=== PATIENT | male | born 1985 | race Caucasian/White ===

== ENCOUNTER → 2019-07-04 09:31 | Outpatient (BNVA) | payer OTHER, SELFPAY | PROVIDERS: Family Provider Nurse Practitioner Family; PCP Nurse Practitioner Family; Visit Provider Psychiatry & Neurology Psychiatry | DX: F60.3 Borderline personality disorder (principal); F34.1 Dysthymic disorder; F40.10 Social phobia, unspecified; F33.42 Major depressive disorder, recurrent, in full remission | CPT/HCPCS: 99213 ==

== ENCOUNTER → 2019-10-31 07:36 | Outpatient (BNVA) | payer OTHER, SELFPAY | PROVIDERS: Family Provider Nurse Practitioner Family; PCP Nurse Practitioner Family; Visit Provider Psychiatry & Neurology Psychiatry | DX: F33.42 Major depressive disorder, recurrent, in full remission (principal); F40.10 Social phobia, unspecified; F34.1 Dysthymic disorder; F60.3 Borderline personality disorder | CPT/HCPCS: 99214 ==

== ENCOUNTER → 2020-03-02 07:38 | Outpatient (BNVA) | payer OTHER, SELFPAY | PROVIDERS: Family Provider Nurse Practitioner Family; PCP Nurse Practitioner Family; Visit Provider Psychiatry & Neurology Psychiatry | DX: F33.42 Major depressive disorder, recurrent, in full remission (principal); F40.10 Social phobia, unspecified; F34.1 Dysthymic disorder; F60.3 Borderline personality disorder; F41.1 Generalized anxiety disorder | CPT/HCPCS: 99213 ==

== ENCOUNTER → 2020-04-27 07:40 | Outpatient (BNVA) | payer OTHER, SELFPAY | PROVIDERS: Family Provider Nurse Practitioner Family; PCP Nurse Practitioner Family; Visit Provider Psychiatry & Neurology Psychiatry | DX: F33.42 Major depressive disorder, recurrent, in full remission (principal); F40.10 Social phobia, unspecified; F34.1 Dysthymic disorder; F60.3 Borderline personality disorder | CPT/HCPCS: 99213 ==

== ENCOUNTER → 2020-06-15 07:41 | Outpatient (BNVA) | payer OTHER, SELFPAY | PROVIDERS: Family Provider Nurse Practitioner Family; PCP Nurse Practitioner Family; Visit Provider Psychiatry & Neurology Psychiatry | DX: F33.42 Major depressive disorder, recurrent, in full remission (principal); F40.10 Social phobia, unspecified; F34.1 Dysthymic disorder; F60.3 Borderline personality disorder | CPT/HCPCS: 99212 ==

== ENCOUNTER → 2020-08-10 07:29 | Outpatient (BNVA) | payer OTHER, SELFPAY | PROVIDERS: Family Provider Nurse Practitioner Family; PCP Nurse Practitioner Family; Visit Provider Psychiatry & Neurology Psychiatry | DX: F33.42 Major depressive disorder, recurrent, in full remission (principal); F40.10 Social phobia, unspecified; F34.1 Dysthymic disorder; F60.3 Borderline personality disorder | CPT/HCPCS: 99213 ==

== ENCOUNTER → 2020-11-02 07:22 | Outpatient (BNVA) | payer OTHER, SELFPAY | PROVIDERS: Family Provider Nurse Practitioner Family; PCP Nurse Practitioner Family; Visit Provider Psychiatry & Neurology Psychiatry | DX: F33.42 Major depressive disorder, recurrent, in full remission (principal); F40.10 Social phobia, unspecified; F34.1 Dysthymic disorder; F60.3 Borderline personality disorder | CPT/HCPCS: 99214 ==

== ENCOUNTER → 2021-06-01 11:55 | Outpatient (BNVA) | payer OTHER, SELFPAY | PROVIDERS: Family Provider Nurse Practitioner Family; PCP Nurse Practitioner Family; Visit Provider Nurse Practitioner Family | DX: Z20.822 Contact with and (suspected) exposure to COVID-19 (principal); R68.89 Other general symptoms and signs | CPT/HCPCS: 87400; 87635 ==

== ENCOUNTER 2021-06-03 21:23 | Inpatient (IN) | payer OTHER, MEDICARE, SELFPAY ==
--- NOTE | 2021-06-03 21:57 | ED_ITS ---
HPI - COVID General: Chief Complaint: COVID symptoms Stated Complaint: Covid Symptoms Time Seen by Provider: 06/03/21 21:57 History of Present Illness: HPI Narrative: Mr Bower is a 36-year-old gentleman with only history of psychiatric disorder who presents to the emergency department due to shortness of breath and cough. He endorses symptom onset approximately 10 days ago initially with fever and generalized symptoms. He presented to outside clinic 1 week ago and was diagnosed with ear infection and started on amoxicillin. This caused diarrhea which is since resolved, he does endorse a history of C. difficile however feels improved, due to the freq uent bowel movements he did note mild amount of blood in the stool. However, his primary concern today is shortness of breath cough. Over the past 2 to 3 days this has gotten markedly worse. Shortness of breath is moderate to severe, course has been worsening. Additional generalized symptoms include chills, fevers, aches. He does have sick contacts and was previously tested for Covid but does not have the results. Denies lung history or heart history. No other newbchanges in health, exacerbating, or relieving factors identified. COVID Results: SARS-CoV-2 Antigen (Rapid) Negative (Negative) 06/03/21 23:00 06/03/21 SARS-CoV-2 RNA (RT-PCR) Detected (NOT DETECTED) A 06/04/21 01:30 06/04/21 Review of Systems General: Reports: 10 or more systems reviewed and unremarkable except in HPI and below PFSH ED PFSH: Medical History Borderline personality disorder Chronic knee pain Congenital heart problem Dysthymic disorder Major depressive disorder, recurrent, in full remission Psychiatric care Social phobia, unspecified Surgical History H/O rhinoplasty Social History Smoking and tobacco status: never smoked Second hand smoke exposure: No Smoking risk assessment/counseling performed?: No Reason smoking risk assessment not done: not indicated Physical Exam Narrative: EXAM NARRATIVE: GENERAL/CONSTITUTIONAL -ill-appearing. Moderate respiratory distress. Eyes - PERRL, no conjunctival injection ENMT - Atraumatic external nose and ears. Dry mucous membranes NECK - supple. trachea midline CARDIOVASCULAR -tachycardic rate and regular rhythm. Normal peripheral perfusion. No peripheral edema. RESPIRATORY - coarse to auscultation bilaterally. Patient is requiring 15 L via nonrebreather to maintain low 90s oxygen saturation. Tachypnea and increased respiratory effort present. ABDOMEN/GI - Nontender/Nondistended. No tenderness to percussion or evidence of peritonitis MSK - Extremities without obvious deformity or tenderness to palpation SKIN - Warm, Dry NEURO - alert and appropriately oriented. Moves all extremities equally. Course ED course: - Patient was seen and evaluated by me at bedside - Patient placed on cardiac monitors, IV access obtained - Initial evaluation notable for respiratory distress as noted above. Patient placed on BiPAP - Labs notable for no leukocytosis, normal hemoglobin. Metabolic panel with evidence of likely dehydration with sodium 131 and chloride 91. Mild hypokalemia, replenishment ordered. AST is elevated. Procalcitonin negative with elevated CRP. Initial ABG with. O2 on BiPAP after being on 15 L of oxygen for some period of time was 65. - Imaging notable for moderate to severe mid and lower abnormalities. My clinical suspicion is Covid however rapid test is negative and the degree of hypoxemia despite FiO2 on BiPAP is concerning especially in the context of known correlation with increased thromboembolic events. Therefore CTA is warranted. CTA is negative for PE though better defines infiltrates. These are consistent with Covid, patient's sick contacts that are sick with Covid, I believe that the patient's antigen test being negative is an error. PCR send out sent. - Additional finding of large thyroid mass was discussed with patient. - Upon serial reexamination after treatment the patient was mildly improved. With patient's permission his was updated. - Based on patient history, evaluation, labs, and imaging as interpreted the most likely cause of the patient's condition is COVID-19 pneumonia with acute hypoxic respiratory failure. - The results of ED evaluation were discussed with the patient including plan for admission due to requirement for level of care not available if discharged to prevent significant worsening/deterioration. - Hospitalist service contacted and patient to be admitted to ICU. In discussion Decadron and remdesivir ordered. - Patient was admitted without acute further deterioration or significant events. I am concerned regarding this patient's prognosis, I did discuss the severity of his disease with both patient and his . Vital Signs: Vital signs: Vital Signs Temperature 98.1 F 06/07/21 00:00 Pulse Rate 97 06/06/21 22:00 Respiratory Rate 22 H 06/06/21 19:57 Blood Pressure 118/74 06/06/21 16:00 Pulse Oximetry 91 06/06/21 19:57 MDM - COVID Medical Records: Attestation: I reviewed the patient's medical records. Lab Data: Attestation: I reviewed the patient's lab results. Labs: Lab Results 06/03/21 06/03/21 06/03/21 22:15 22:15 22:15 WBC 7.9 10^3/uL 10^3/ uL (4.0-10.0) RBC 4.42 10^6/uL 10^6 /uL (4.1-5.3) Hgb 13.4 g/dL g/dL (11.7-16.6) Hct 37.8 % L % (42.0-52.0) MCV 85.5 fl fl (80-94) MCH 30.3 pg pg (28.0-34.0) MCHC 35.4 g/dL g/dL (30.0-36.0) RDW 12.4 % % (12.1-15.1) Plt Count 177 10^3/cmm 10^3 /cmm (130-400) MPV 10.8 fL H fL (7.4-10.4) Neut % (Auto) 90.5 % % Lymph % (Auto) 6.2 % % Faulk % (Auto) 2.7 % % Eos % (Auto) 0.0 % % Baso % (Auto) 0.0 % % Neut # (Auto) 7.11 10^3/uL 10^3 /uL (1.8-7.7) Lymph # (Auto) 0.5 10^3/uL L 10^ 3/uL (0.8-4.8) Faulk # (Auto) 0.2 10^3/uL 10^3/ uL (0.2-0.9) Eos # (Auto) 0.0 10^3/uL 10^3/ uL (0.0-0.8) Baso # (Auto) 0.0 10^3/uL 10^3/ uL (0.0-0.1) Nucleated RBC % (a uto) 0 % % Nucleated RBCs # 0.0 /100WBC /100W BC PT 13.40 SECONDS SEC ONDS (12.1-14.9) INR 0.99 (0.8-1.2) APTT 32.6 SECONDS SECO NDS (23.9-36.7) Specimen Type Sample Site ABG pH ABG pCO2 ABG pO2 ABG HCO3 ABG Base Excess Alejo Test Hematocrit O2 Delivery Device FiO2 Customer Experience Leader ID Sodium 131 mmol/L L mmol /L (136-145) Potassium 3.2 mmol/L L mmol /L (3.5-5.1) Chloride 91 mmol/L L mmol/ L (98-107) Carbon Dioxide 28 mmol/L mmol/L (22-29) Anion Gap 15.2 (5-19) BUN 14 mg/dL mg/dL (6-20) Creatinine 1.0 mg/dL mg/dL (0.7-1.2) GFR Calculation 83.6 mL/min L mL/ min (90-130) Glucose 119 mg/dL H mg/dL (65-115) Calculated Osmolal ity 274 mOsm/kg L mOs m/kg (285-295) Lactate Calcium 7.7 mg/dL L mg/dL (8.5-10.5) Magnesium 1.7 mg/dL mg/dL (1.7-2.3) Total Bilirubin 0.3 mg/dL mg/dL (0.15-1.2) AST 73 U/L H U/L (0-40) ALT 41 U/L U/L (0-41) Alkaline Phosphata se 41 IU/L IU/L (40-130) Troponin T Baselin e Troponin T 120 Min [place] Delta Troponin T C-Reactive Protein 67.4 mg/L H mg/L (0.0-4.9) NT-Pro-B Natriuret Pep 293 pg/mL H pg/mL (0-125) Total Protein 5.6 g/dL L g/dL (6.6-8.7) Albumin 3.4 g/dL L g/dL (3.5-5.2) Globulin 2.2 g/dL g/dL (1.3-4.6) Procalcitonin 0.15 ng/mL ng/mL (0-0.5) TSH 0.38 uIU/mL uIU/m L (0.27-4.20) SARS-CoV-2 RNA (RT -PCR) SARS-CoV-2 Ag (Rap id) 06/03/21 06/03/21 06/03/21 22:15 22:15 22:29 WBC RBC Hgb Hct MCV MCH MCHC RDW Plt Count MPV Neut % (Auto) Lymph % (Auto) Faulk % (Auto) Eos % (Auto) Baso % (Auto) Neut # (Auto) Lymph # (Auto) Faulk # (Auto) Eos # (Auto) Baso # (Auto) Nucleated RBC % (a uto) Nucleated RBCs # PT INR APTT Specimen Type Arterial Sample Site Radial, right ABG pH 7.52 H (7.35-7.45) ABG pCO2 37.8 mmHg mmHg (35-45) ABG pO2 65.0 mmHg L mmHg (80.0-100.0) ABG HCO3 31.0 mmol/L H mmo l/L (22-26) ABG Base Excess 7.7 mmol/L H mmol /L (-2.0-2.0) Alejo Test Pos Hematocrit 43.9 % % (42-52) O2 Delivery Device Bipap FiO2 80.0 % % Customer Experience Leader ID glc Sodium Potassium Chloride Carbon Dioxide Anion Gap BUN Creatinine GFR Calculation Glucose Calculated Osmolal ity Lactate 1.2 mmol/L mmol/L (0.5-2.2) Calcium Magnesium Total Bilirubin AST ALT Alkaline Phosphata se Troponin T Baselin e 8 ng/L ng/L (0-15) Troponin T 120 Min [place] Troponin T C-Reactive Protein NT-Pro-B Natriuret Pep Total Protein Albumin Globulin Procalcitonin TSH SARS-CoV-2 RNA (RT -PCR) SARS-CoV-2 Ag (Rap id) 06/03/21 06/04/21 06/04/21 23:00 00:30 01:30 WBC RBC Hgb Hct MCV MCH MCHC RDW Plt Count MPV Neut % (Auto) Lymph % (Auto) Faulk % (Auto) Eos % (Auto) Baso % (Auto) Neut # (Auto) Lymph # (Auto) Faulk # (Auto) Eos # (Auto) Baso # (Auto) Nucleated RBC % (a uto) Nucleated RBCs # PT INR APTT Specimen Type Sample Site ABG pH ABG pCO2 ABG pO2 ABG HCO3 ABG Base Excess Alejo Test Hematocrit O2 Delivery Device FiO2 Customer Experience Leader ID Sodium Potassium Chloride Carbon Dioxide Anion Gap BUN Creatinine GFR Calculation Glucose Calculated Osmolal ity Lactate Calcium Magnesium Total Bilirubin AST ALT Alkaline Phosphata se Troponin T Baselin e Troponin T 120 Min [place] 7.33 ng/L ng/L (0-15) Delta Troponin T -0.67 ABS# L ABS# (0-10) C-Reactive Protein NT-Pro-B Natriuret Pep Total Protein Albumin Globulin Procalcitonin TSH SARS-CoV-2 RNA (RT -PCR) Detected A (NOT DETECTED) SARS-CoV-2 Ag (Rap id) Negative (Negative) EKG Data: EKG 1: Attestation: I personally reviewed and interpreted this EKG as follows: EKG interpretation date: 06/04/21 EKG interpretation time: 00:30 Interpretation: Twelve-lead EKG shows a regular rhythm at a rate of 93. DE interval 152, QRS duration 96, QTc 470. Borderline axis. Interpretation: Sinus rhythm. Nonspecific ST segment abnormalities. COVID Results: SARS-CoV-2 Antigen (Rapid) Negative (Negative) 06/03/21 23:00 06/03/21 SARS-CoV-2 RNA (RT-PCR) Detected (NOT DETECTED) A 06/04/21 01:30 06/04/21 Critical Care Time Critical Care Time: Critical Care Time: Yes Total Critical Care Time: 45 Attestation: Due to a high probability of clinically significant, possibly life threatening deterioration, the patient required my highest level of attention and preparedness to intervene emergently and I personally spent this critical care time directly and personally managing the patient. This critical care time included obtaining a history; examining the patient; pulse oximetry; ordering and review of laboratory and imaging studies; arranging urgent treatment with development of a management plan; evaluation of patient's response to treatment; frequent reassessment; and, discussions with other providers as applicable. It was exclusive of separately billable procedures. Discharge Plan Discharge Patient Disposition: Admitted As Inpatient Admit Provider: Kat Gonzalez Coding Level of Care Code ED Account Installer for [facility] [place]
[2021-06-03 22:02] VITALS: BP 109/63; PULSE 108; RESP 20; TEMP 37.3; O2SAT 70
--- NOTE | 2021-06-03 22:08 | XRR_ITS ---
PROCEDURE INFORMATION: Exam: XR Chest Exam date and time: 06/03/2021 10:08 PM Age: 36 years old Clinical indication: Cough and shortness of breath; Additional info: Resp distress, covid symptoms TECHNIQUE: Imaging protocol: XR of the chest. Views: 1 view. COMPARISON: CT Abdomen/Pelvis Renal [id number] 11/22/2018 7:12 PM FINDINGS: Lungs: Moderate to severe mid and lower lung field opacities most consistent with pneumonia. Pleural spaces: Unremarkable. No pleural effusion. No pneumothorax. Heart/Mediastinum: Unremarkable. No cardiomegaly. Bones/joints: Unremarkable. XR/XR chest 1V portable [id number] IMPRESSION: Moderate to severe mid and lower lung field opacities most consistent with pneumonia. Radiation Dose CTDIVOL = (mGy): DLP = (mGy-cm)
--- NOTE | 2021-06-03 22:09 | ECG_ITS ---
[facility] Test Date: 2021-06-04 Pat Name: Cabrera Bower Department: Room: Gender: Male Threading Machine Feeder Automatic: : 1985 Requested By: Michael Wynn Order Number: [id number] Freitas MD: Tyler Carlisle M.D. Measurements Intervals [place] Rate: 93 P: 21 [place]: 152 QRS: -12 QRSD: 96 T: -4 QT: 376 QTc: 470 Interpretive Statements SINUS RHYTHM MINIMAL VOLTAGE CRITERIA FOR LVH, CONSIDER NORMAL VARIANT [MEETS CRITERIA IN ONE OF: R(aVL), S(V1), R(V5), R(V5/V6)+S(V1)] NONSPECIFIC T-WAVE ABNORMALITY No previous ECG available for comparison Electronically Signed On 06-05-2021 13:18:33 DIE CASTING MACHINE MAINTAINER by Tyler Carlisle M.D. [id number]
[2021-06-03 22:15] VITALS: O2SAT 94
--- NOTE | 2021-06-03 22:25 | PC.NURSE ---
RT at bedside to initiate bi-pap 12/02 80% FiO2,
[2021-06-03 22:35] VITALS: PULSE 102; RESP 16; O2SAT 92
[2021-06-03] MEDS: sodium chloride 0.9% 500 ML IV (22:38)
[2021-06-03 22:40] LABS: ABG PCO2 37.8 mmHg (35-45); ABG PH Result 7.52 (7.35-7.45); Arterial Blood Gas Hematocrit 43.9 % (42-52); Base Excess ABG 7.7 mmol/L (-2.0-2.0); Blood Gas Allen Test Pos; Blood Gas Operator Identificat glc; Blood Gas Sample Site Radial, right; Blood Gas Sample Type Arterial; Oxygen Device BIPAP
[2021-06-03 22:52] LABS: Hematocrit 37.8 % (42.0-52.0); Hemoglobin 13.4 g/dL (11.7-16.6); Lymphocytes # 0.5 10^3/uL (0.8-4.8); Lymphocytes % 6.2 %; Mean Corpuscular HGB Conc 35.4 g/dL (30.0-36.0); Mean Corpuscular Hemoglobin 30.3 pg (28.0-34.0); Mean Corpuscular Volume 85.5 fl (80-94); Mean Platelet Volume 10.8 fL (7.4-10.4); Monocytes # 0.2 10^3/uL (0.2-0.9); Monocytes % 2.7 %; Neutrophils # 7.11 10^3/uL (1.8-7.7); Neutrophils % 90.5 %; Nucleated Red Blood Cells % 0 %; Platelet Count 177 10^3/cmm (130-400); Red Blood Count 4.42 10^6/uL (4.1-5.3); Red Cell Distribution Width 12.4 % (12.1-15.1); White Blood Count 7.9 10^3/uL (4.0-10.0)
[2021-06-03 22:55] VITALS: RESP 22; O2SAT 93
[2021-06-03] MEDS: morphine 4 mg/mL SDV 1 mL IVP (22:55)
[2021-06-03] MEDS: acetaminophen 1,000 MG/100 ML PIGGYBACK 400 MG IV (22:55)
--- NOTE | 2021-06-03 22:57 | CTR_ITS ---
PROCEDURE INFORMATION: Exam: CTA Chest With Contrast Exam date and time: 06/03/2021 10:57 PM Age: 36 years old Clinical indication: Dyspnea and shortness of breath; Patient HX: SOB and dyspnea. 70 percent spo2 on room air when presenting to er. Pending covid results. ; Additional info: Covid, hypoxemia, respiratory distress TECHNIQUE: Imaging protocol: Computed tomographic angiography of the chest with contrast. 3D rendering (Not supervised by radiologist): MIP and/or 3D reconstructed images were created by the technologist. Radiation optimization: All CT scans at this facility use at least one of these dose optimization techniques: automated exposure control; mA and/or kV adjustment per patient size (includes targeted exams where dose is matched to clinical indication); or iterative reconstruction. Contrast material: OMNI 350; Contrast volume: 103 ml; Contrast route: INTRAVENOUS (IV); COMPARISON: CR (CHEST, ) 06/03/2021 10:33 PM RADIATION DOSE METRICS: Total DLP (mGy-cm): 1758.03 FINDINGS: Pulmonary arteries: No pulmonary embolus or aortic dissection. Aorta: See Pulmonary arteries finding. Thyroid: Large 7.5 x 5.4 x 4.6 cm cm left thyroid nodule/mass with deviation of the trachea to the right with recommendation for nonemergent thyroid ultrasound to rule out neoplasm. Lungs: Prominent bilateral geographic ground-glass opacities with consolidation in airspace disease consistent with moderate to severe bilateral COVID-19 pneumonia versus other pneumonia. Pleural spaces: Unremarkable. No pneumothorax. No pleural effusion. Heart: Unremarkable. No cardiomegaly. No pericardial effusion. Lymph nodes: Unremarkable. No enlarged lymph nodes. Bones/joints: Unremarkable. No acute fracture. Soft tissues: Unremarkable. CT/CT angio chest PE protcl [id number] IMPRESSION: 1. Prominent bilateral geographic ground-glass opacities with consolidation in airspace disease consistent with moderate to severe bilateral COVID-19 pneumonia versus other pneumonia. 2. No pulmonary embolus or aortic dissection. 3. Large 7.5 x 5.4 x 4.6 cm cm left thyroid nodule/mass with deviation of the trachea to the right with recommendation for nonemergent thyroid ultrasound to rule out neoplasm. COMMENTS: Consistent with the [place] [employer]'s Incidental Findings Committee white paper (J Am Edelmira Radiol 2015): In patients aged 35 years and older with an incidental thyroid nodule equal to or greater than 1.[address], MRI or extrathyroidal US, further evaluation with dedicated thyroid US is recommended for patients with normal life expectancy and without comorbidities. For smaller nodules without suspicious features, no further evaluation or follow up is recommended. Radiation Dose CTDIVOL = (mGy): DLP = 1758.03 (mGy-cm)
[2021-06-03 23:01] LABS: INR 0.99 (0.8-1.2); Partial Thromboplastin Time 32.6 SECONDS (23.9-36.7)
[2021-06-03 23:12] LABS: Lactate (Lactic Acid level) 1.2 mmol/L (0.5-2.2)
[2021-06-03 23:16] LABS: Troponin(5th) Baseline 8 ng/L (0-15)
[2021-06-03 23:23] LABS: NT Pro B Type Natriuretic Pept 293 pg/mL (0-125); Procalcitonin 0.15 ng/mL (0-0.5); Thyroid Stimulating Hormone 0.38 uIU/mL (0.27-4.20)
[2021-06-03 23:34] LABS: Alanine Aminotransferase 41 U/L (0-41); Albumin Level 3.4 g/dL (3.5-5.2); Alkaline Phosphatase 41 IU/L (40-130); Anion Gap 15.2 (5-19); Aspartate Amino Transferase 73 U/L (0-40); Blood Urea Nitrogen 14 mg/dL (6-20); C Reactive Protein 67.4 mg/L (0.0-4.9); Calcium 7.7 mg/dL (8.5-10.5); Carbon Dioxide 28 mmol/L (22-29); Chloride 91 mmol/L (98-107); Globulin 2.2 g/dL (1.3-4.6); Glomerular Filtration Rate 83.6 mL/min (90-130); Glucose 119 mg/dL (65-115); Magnesium 1.7 mg/dL (1.7-2.3); Osmolality Calculated 274 mOsm/kg (285-295); Potassium 3.2 mmol/L (3.5-5.1); Sodium 131 mmol/L (136-145); Total Bilirubin 0.3 mg/dL (0.15-1.2); Total Protein 5.6 g/dL (6.6-8.7)
[2021-06-03] MEDS: iohexol 350 mg/mL 100 mL Btl IV ×2 (23:45→23:46)
[2021-06-04] VITALS (37 sets, daily range): BP systolic 99–145; BP diastolic 53–87; PULSE 80–104; RESP 15–33; TEMP 36.8–38.4; O2SAT 88–97; BMI 43.4
--- NOTE | 2021-06-04 00:09 | ECG_ITS ---
[facility] Test Date: 2021-06-04 Pat Name: Cabrera Bower Department: Room: Gender: Male Manager Leadership Development: : 1985 Requested By: Michael Wynn Order Number: [id number] Zena MD: Tyler Carlisle M.D. Measurements Intervals [place] Rate: 88 P: 28 [place]: 163 QRS: -11 QRSD: 104 T: -5 QT: 381 QTc: 461 Interpretive Statements SINUS RHYTHM Compared to ECG 06/04/2021 00:26:09 T-wave abnormality no longer present Electronically Signed On 06-06-2021 17:30:42 GLOBAL TRANSPORTATION MANAGER by Tyler Carlisle M.D. [id number]
[2021-06-04 01:03] LABS: Troponin 5 2HR 7.33 ng/L (0-15)
[2021-06-04 01:05] LABS: SARS Covid-2 Antigen Negative (Negative)
[2021-06-04 01:06] LABS: Troponin 5 2HR Delta -0.67 ABS# (0-10)
[2021-06-04] MEDS: dexamethasone 10 mg/mL INJ 6 MG IVP (01:07)
[2021-06-04] MEDS: HYDROmorphone 1 mg/mL INJ 1 mL IVP (01:38)
--- NOTE | 2021-06-04 02:22 | P.HP_ITS ---
Providers/Chief Complaint Admitting Physician: Kat Gonzalez MD Primary Care Provider: KIERAN Yang Chief Complaint: Covid Symptoms History of Present Illness Cabrera Bower is a 36 year old male who started off with having symptoms of ear pain, discharge, URI first on 05/24, started on treatment with oral and otic abc without significant difference, then by 06/01 also developing high fever, chills, diarrhea for which he visited PMD on 06/01 and has negative influenza AG and has a pending COVID PCR. Came into the ER today with c/o fever and dyspnea. Sick contacts+ at home with similar symptoms. CTA PE nagteive for PE. Extensive B/L infiltrates seen on CXR and CT concerning for covid 19 pneumonia. He is unvaccinated. On ER arrival, 02 sat was 70% on RA, then required placement on nasal canula and eventually switched to BIPAP due to respiratory distress. Review of Systems General: Reports: 10 or more systems reviewed and unremarkable except in HPI and below Const: Denies: fever(s), chills or body aches Eyes: Denies: change in vision, blurry vision or photophobia ENMT: Reports: hoarseness; Denies: throat pain, enlarged tonsils, odynophagia or nasal congestion Card: Denies: chest pain, palpitations, irregular heart rhythm, edema, swelling of feet/ankles, lightheadedness, pre-syncope, dyspnea on exertion or orthopnea Resp: Denies: dyspnea, productive cough, non-productive cough, wheezing, stridor, pain on inspiration, change in phlegm color, hemoptysis or chest congestion GI: Denies: abdominal pain, nausea, vomiting, hematemesis, coffee ground emesis, dysphagia, heartburn, diarrhea, constipation, GI cramping, change in stool character, hematochezia or melena : Denies: flank pain, dysuria, urinary frequency, urinary urgency, urinary hesitancy or hematuria Musc: Denies: neck pain, back pain, extremity pain, joint swelling, joint warmth or deformity Neuro: Denies: headache(s), numbness in extremities, weakness in extremities, sensory changes, difficulty walking, frequent falls, dizziness, vertigo, behavioral changes, Slurred speech present or seizure-like activity Psych: Denies: anxiety, depression, suicidal ideation or homicidal ideation Endo: Denies: polyuria, polydipsia, tired all the time, cold intolerance or hot flashes Anuj/Lymph: Denies: easy bruising or easy bleeding Medications/Allergies Home Medications Medication Instructions Recorded Confirmed Last Taken Type fluticasone propionate 50 1 spray INTRANASAL Q12H #15.8 ml 08/30/20 06/01/21 Unknown Rx mcg/actuation nasal spray,suspension alprazolam 1 mg tablet 1 mg PO DAILY PRN #30 tab 04/18/21 06/01/21 Unknown Rx sertraline 100 mg tablet 100 mg PO DAILY #30 tab 05/06/21 06/01/21 Unknown Rx acetaminophen 325 mg capsule 325 mg PO QID PRN 05/24/21 06/01/21 Unknown History amoxicillin 500 mg tablet 500 mg PO BID 10 Days #20 tab 05/24/21 06/01/21 Unknown Rx ciprofloxacin 0.3 %-dexamethasone 4 drp OTIC (EAR) BID 7 Days #7.5 ml 05/24/21 06/01/21 Unknown Rx 0.1 % ear drops,suspension fexofenadine 60 mg-pseudoephedrine 1 tab PO Q12H PRN 14 Days #30 tab 05/24/21 06/01/21 Unknown Rx ER 120 mg tablet,ext.release,12 hr prednisone 20 mg tablet 60 mg PO DAILY 9 Days #18 tab 06/01/21 06/01/21 Unknown Rx Allergies Allergy/AdvReac Type Severity Reaction Status Date / Time No Known Allergies Allergy Verified 06/01/21 11:17 PFSH Acute PFSH: Medical History Borderline personality disorder Chronic knee pain Congenital heart problem Dysthymic disorder Major depressive disorder, recurrent, in full remission Psychiatric care Social phobia, unspecified Surgical History H/O rhinoplasty Social History Smoking and tobacco status: never smoked Second hand smoke exposure: No Smoking risk assessment/counseling performed?: No Reason smoking risk assessment not done: not indicated Vitals/I&O/Wt Last Vital Signs Temp 99.2 F 06/03/21 22:02 Pulse 82 06/04/21 01:27 Resp 18 06/04/21 01:38 BP 113/73 06/04/21 01:10 Pulse Ox 93 06/04/21 01:27 06/03/21 06/03/21 06/04/21 14:59 22:59 06:59 Intake Total 600 / 600 Balance 600 / 600 Weight last 48 hrs Weight 142.428 kg Physical Exam Narrative: EXAM NARRATIVE: General: visibly dyspneic, unable to talk in full sentences, obese HEENT: PERRLA, pupils bilaterally equal and reactive, pallors not present Chest: Normal vesicular breath sounds, no added sounds, equal good air entry bilaterally CVS: S1-S2 regular, no murmurs, no tachycardia, no gallops, no rubs Abdomen: Soft, nontender, no organomegaly, bowel sounds present Neuro: No focal deficits, no facial deformity, AO x3, power 5/5 in all limbs Data : 06/03/21 22:15 06/04/21 04:15 Other Labs: Laboratory Results WBC 7.9 10^3/uL (4.0-10.0) 06/03/21 22:15 RBC 4.42 10^6/uL (4.1-5.3) 06/03/21 22:15 Hgb 13.4 g/dL (11.7-16.6) 06/03/21 22:15 Hct 37.8 % (42.0-52.0) L 06/03/21 22:15 MCV 85.5 fl (80-94) 06/03/21 22:15 MCH 30.3 pg (28.0-34.0) 06/03/21 22:15 MCHC 35.4 g/dL (30.0-36.0) 06/03/21 22:15 RDW 12.4 % (12.1-15.1) 06/03/21 22:15 Plt Count 177 10^3/cmm (130-400) 06/03/21 22:15 MPV 10.8 fL (7.4-10.4) H 06/03/21 22:15 Neut % (Auto) 90.5 % 06/03/21 22:15 Lymph % (Auto) 6.2 % 06/03/21 22:15 [place] % (Auto) 2.7 % 06/03/21 22:15 Eos % (Auto) 0.0 % 06/03/21 22:15 Baso % (Auto) 0.0 % 06/03/21 22:15 Neut # (Auto) 7.11 10^3/uL (1.8-7.7) 06/03/21 22:15 Lymph # (Auto) 0.5 10^3/uL (0.8-4.8) L 06/03/21 22:15 [place] # (Auto) 0.2 10^3/uL (0.2-0.9) 06/03/21 22:15 Eos # (Auto) 0.0 10^3/uL (0.0-0.8) 06/03/21 22:15 Baso # (Auto) 0.0 10^3/uL (0.0-0.1) 06/03/21 22:15 Nucleated RBC % (auto) 0 % 06/03/21 22:15 Nucleated RBCs # 0.0 /100WBC 06/03/21 22:15 PT 13.40 SECONDS (12.1-14.9) 06/03/21 22:15 INR 0.99 (0.8-1.2) 06/03/21 22:15 APTT 32.6 SECONDS (23.9-36.7) 06/03/21 22:15 D-Dimer 0.52 ug/mIFEU (0-0.59) 06/04/21 04:15 Specimen Type Arterial 06/03/21 22:29 Sample Site Radial, right 06/03/21 22:29 ABG pH 7.52 (7.35-7.45) H 06/03/21 22:29 ABG pCO2 37.8 mmHg (35-45) 06/03/21 22:29 ABG pO2 65.0 mmHg (80.0-100.0) L 06/03/21 22:29 ABG HCO3 31.0 mmol/L (22-26) H 06/03/21 22:29 ABG Base Excess 7.7 mmol/L (-2.0-2.0) H 06/03/21 22:29 Alejo Test Pos 06/03/21 22:29 Hematocrit 43.9 % (42-52) 06/03/21 22:29 O2 Delivery Device Bipap 06/03/21 22:29 FiO2 80.0 % 06/03/21 22:29 Forming Machine Upkeep Mechanic Helper ID glc 06/03/21 22:29 Sodium 133 mmol/L (136-145) L 06/04/21 04:15 Potassium 3.4 mmol/L (3.5-5.1) L 06/04/21 04:15 Chloride 95 mmol/L (98-107) L 06/04/21 04:15 Carbon Dioxide 25 mmol/L (22-29) 06/04/21 04:15 Anion Gap 16.4 (5-19) 06/04/21 04:15 BUN 15 mg/dL (6-20) 06/04/21 04:15 Creatinine 1.0 mg/dL (0.7-1.2) 06/04/21 04:15 GFR Calculation 83.6 mL/min (90-130) L 06/04/21 04:15 Glucose 131 mg/dL (65-115) H 06/04/21 04:15 Calculated Osmolality 279 mOsm/kg (285-295) L 06/04/21 04:15 Lactate 1.2 mmol/L (0.5-2.2) 06/03/21 22:15 Calcium 7.7 mg/dL (8.5-10.5) L 06/04/21 04:15 Magnesium 1.7 mg/dL (1.7-2.3) 06/03/21 22:15 Total Bilirubin 0.2 mg/dL (0.15-1.2) 06/04/21 04:15 AST 58 U/L (0-40) H 06/04/21 04:15 ALT 34 U/L (0-41) 06/04/21 04:15 Alkaline Phosphatase 36 IU/L (40-130) L 06/04/21 04:15 Troponin T Baseline 8 ng/L (0-15) 06/03/21 22:15 Troponin T 120 Minute 7.33 ng/L (0-15) 06/04/21 00:30 Delta Troponin T -0.67 ABS# (0-10) L 06/04/21 00:30 Troponin T Hi Sens 6Hr 6.00 ng/L (0-15) 06/04/21 04:15 Troponin T Hi Sens 6Hr Delta -2.00 ng/L (0-12) L 06/04/21 04:15 C-Reactive Protein 64.3 mg/L (0.0-4.9) H 06/04/21 04:15 C-Reactive Protein Cancelled 06/04/21 04:15 NT-Pro-B Natriuret Pep 293 pg/mL (0-125) H 06/03/21 22:15 Total Protein 5.6 g/dL (6.6-8.7) L 06/04/21 04:15 Albumin 3.1 g/dL (3.5-5.2) L 06/04/21 04:15 Globulin 2.5 g/dL (1.3-4.6) 06/04/21 04:15 Procalcitonin 0.15 ng/mL (0-0.5) 06/03/21 22:15 TSH 0.38 uIU/mL (0.27-4.20) 06/03/21 22:15 SARS-CoV-2 Ag (Rapid) Negative (Negative) 06/03/21 23:00 Impressions Chest X-Ray 06/03/21 22:08 IMPRESSION: Moderate to severe mid and lower lung field opacities most consistent with pneumonia. Radiation Dose CTDIVOL = (mGy): DLP = (mGy-cm) Chest CTA 06/03/21 22:57 IMPRESSION: 1. Prominent bilateral geographic ground-glass opacities with consolidation in airspace disease consistent with moderate to severe bilateral COVID-19 pneumonia versus other pneumonia. 2. No pulmonary embolus or aortic dissection. 3. Large 7.5 x 5.4 x 4.6 cm cm left thyroid nodule/mass with deviation of the trachea to the right with recommendation for nonemergent thyroid ultrasound to rule out neoplasm. COMMENTS: Consistent with the [employer]'s Incidental Findings Committee white paper (J Am Edelmira Radiol 2015): In patients aged 35 years and older with an incidental thyroid nodule equal to or greater than 1.[address], MRI or extrathyroidal US, further evaluation with dedicated thyroid US is recommended for patients with normal life expectancy and without comorbidities. For smaller nodules without suspicious features, no further evaluation or follow up is recommended. Radiation Dose CTDIVOL = (mGy): DLP = 1758.03 (mGy-cm) Micro: Microbiology 06/03/21 22:00 Blood Culture - Preliminary Blood SPECIMEN COLLECTED 06/03/21 22:15 Blood Culture - Preliminary Blood SPECIMEN COLLECTED A&P Assessment and plan (1) COVID-19 determined by clinical diagnostic criteria: Status: Acute (2) Acute respiratory failure: Status: Acute Additional A&P Information Admit to ICU in view of acute respiratory failure with quickly increasing [address], history, sick conacts clinical picture most consistent with COVID 19 pneumonia pending COVID PCR, however will start treatment based on strong clinical suspicion Remdisivir 200mg iv x 1 followed by 100mg iv daily dexamethasone 6mg IVP daily duoneb q6h, budesonide q12h empiric CTX and azithromycin Flutter valve/spirometer at bedside trend inflammatory markers including CRP, D dimer CTA PE negative for PE supplemental 02 to luis carlos 02 sat >92%, BIPAP ventilation DVT ppx: lovenox 40mg s/c daily troponins without sgnificant delta Attestations Medical Necessity Statement*: >2midnight admission anticipate for above defined care Coding Level of Care Code Acute Horse 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
[2021-06-04] MEDS: remdesivir 200 MG in sodium chloride 0.9% (100 ml) 60 ML 100 MG IV (02:25)
[2021-06-04] MEDS: ipratropium-albuterol 3 mL Neb INHALATION ×4 (02:45→20:00)
[2021-06-04] MEDS: lidocaine 1% 5 ML in potassium chloride premix 100 ML 25 ML IV (02:53)
[2021-06-04] MEDS: enoxaparin 40 mg/0.4 mL Syringe SUBCUT (02:56)
[2021-06-04] MEDS: cefTRIAXone 1,000 MG in sodium chloride 0.9% (plus) 50 ML 100 MG IV (03:02)
[2021-06-04] MEDS: azithromycin 500 MG in sodium chloride 0.9% 250 ML 250 MG IV (03:44)
--- NOTE | 2021-06-04 04:09 | ECG_ITS ---
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 Measurements Intervals [place] Rate: 91 P: 46 TX: 176 QRS: -2 QRSD: 98 T: -1 QT: 359 QTc: 443 Interpretive Statements SINUS RHYTHM Compared to ECG 06/04/2021 01:32:51 No significant changes Electronically Signed On 06-06-2021 17:30:39 PIN FEATHER MACHINE OPERATOR by Tyler Carlisel M.D. [email or web address] hospital at stone countyGraphic Indiaohio state university wexner medical [id number]
[2021-06-04 05:57] LABS: D Dimer 0.52 ug/mIFEU (0-0.59)
[2021-06-04 06:06] LABS: Alanine Aminotransferase 34 U/L (0-41); Albumin Level 3.1 g/dL (3.5-5.2); Alkaline Phosphatase 36 IU/L (40-130); Anion Gap 16.4 (5-19); Aspartate Amino Transferase 58 U/L (0-40); Blood Urea Nitrogen 15 mg/dL (6-20); C Reactive Protein 64.3 mg/L (0.0-4.9); Calcium 7.7 mg/dL (8.5-10.5); Carbon Dioxide 25 mmol/L (22-29); Chloride 95 mmol/L (98-107); Globulin 2.5 g/dL (1.3-4.6); Glomerular Filtration Rate 83.6 mL/min (90-130); Glucose 131 mg/dL (65-115); Osmolality Calculated 279 mOsm/kg (285-295); Potassium 3.4 mmol/L (3.5-5.1); Sodium 133 mmol/L (136-145); Total Bilirubin 0.2 mg/dL (0.15-1.2); Total Protein 5.6 g/dL (6.6-8.7)
[2021-06-04] MEDS: cefepime 2,000 MG in sodium chloride 0.9% (plus) 50 ML 100 MG IV ×2 (09:11→21:06)
[2021-06-04] MEDS: sertraline 100 mg Tablet PO (09:11)
[2021-06-04] MEDS: pantoprazole DR 40 mg Tablet PO (09:11)
[2021-06-04] MEDS: budesonide 0.5 mg/2 mL Neb INHALATION ×2 (09:27→20:00)
[2021-06-04] MEDS: vancomycin 1,500 MG/300 ML PIGGYBACK 200 MG IV ×2 (09:47→17:41)
--- NOTE | 2021-06-04 16:51 | P.PN_ITS ---
Subjective Subjective: Interval history: Patient was seen this morning, no fevers, chills, nausea, vomiting, he is currently on BiPAP, 80%, agreeable to proceed with elective intubation if required, he is unvaccinated Vitals/I&O/Wt Last Vital Signs Temp 98.4 F 06/04/21 12:00 Pulse 93 06/04/21 16:17 Resp 33 H 06/04/21 16:16 BP 121/74 06/04/21 16:00 Pulse Ox 96 06/04/21 16:17 06/04/21 06/04/21 06/04/21 06:59 14:59 22:59 Intake Total 960 / 960 555 / 555 Output Total 1250 / 1250 500 / 500 Balance -290 / -290 55 / 55 Weight last 48 hrs Weight 137.467 kg Weight 142.428 kg Physical Exam Const: COMMON NORMALS: no acute distress and patient oriented x3 Resp: COMMON NORMALS: normal respiratory effort, No retractions and No use of accessory muscles AUSCULTATION: diminished lung sounds diffuse Cardio: COMMON NORMALS: regular rate, regular rhythm, S1 normal heart sound present and S2 normal heart sound present RATE: regular rate RHYTHM: regular rhythm HEART SOUNDS: S1 normal heart sound present and S2 normal heart sound present GI: COMMON NORMALS: Normal to inspection, nondistended, normoactive bowel sounds present, Soft to palpation, non-tender and No hepatosplenomegaly present PALPATION: Yes Soft to palpation and Yes No hepatosplenomegaly present Extremity: COMMON NORMALS: no pedal edema Neuro: COMMON NORMALS: patient oriented x3 Psych: COMMON NORMALS: mental status grossly normal Data : 06/03/21 22:15 06/04/21 04:15 Micro: Microbiology 06/03/21 22:00 Blood Culture - Preliminary Blood SPECIMEN COLLECTED 06/03/21 22:15 Blood Culture - Preliminary Blood SPECIMEN COLLECTED A&P Assessment and plan (1) COVID-19 determined by clinical diagnostic criteria: Status: Acute (2) Acute respiratory failure: Status: Acute (3) Acute respiratory distress syndrome: Status: Acute Additional A&P Information Admit to ICU in view of acute respiratory failure with quickly increasing [address], history, sick conacts clinical picture most consistent with COVID 19 pneumonia pending COVID PCR, however will start treatment based on strong clinical suspicion Remdisivir 200mg iv x 1 followed by 100mg iv daily dexamethasone 6mg IVP daily duoneb q6h, budesonide q12h Broaden antibiotic coverage to vancomycin, cefepime, azithromycin Flutter valve/spirometer at bedside trend inflammatory markers including CRP, D dimer CTA PE negative for PE supplemental 02 to luis carlos 02 sat >92%, BIPAP ventilation DVT ppx: lovenox 40mg s/c daily troponins without sgnificant delta Attestations Medical Necessity Statement*: Patient requires hospitalization for acute respiratory failure secondary to COVID-19 pneumonia Coding Level of Care Code Acute Supervisor [facility] for [facility] Diagnoses COVID-19 determined by clinical diagnostic criteria U07.1 Acute respiratory failure J96.00 Acute respiratory distress syndrome J80
[2021-06-04] MEDS: remdesivir 100 MG in sodium chloride 0.9% (100 ml) 100 ML IV (19:23)
[2021-06-04] MEDS: ALPRAZolam 0.5 mg Tablet PO (21:19)
[2021-06-05] VITALS (34 sets, daily range): BP systolic 97–140; BP diastolic 58–77; PULSE 68–106; RESP 13–30; TEMP 37–37.4; O2SAT 83–95
[2021-06-05] MEDS: vancomycin 1,500 MG/300 ML PIGGYBACK 200 MG IV ×3 (01:12→16:15)
[2021-06-05] MEDS: enoxaparin 40 mg/0.4 mL Syringe SUBCUT (01:16)
[2021-06-05] MEDS: dexamethasone 4 mg/mL INJ 6 MG IVP (01:16)
[2021-06-05] MEDS: ipratropium-albuterol 3 mL Neb INHALATION ×4 (02:00→20:03)
[2021-06-05 04:27] LABS: Basophils % 0.1 %; Hemoglobin 12.4 g/dL (11.7-16.6); Lymphocytes # 0.8 10^3/uL (0.8-4.8); Lymphocytes % 11.3 %; Mean Corpuscular HGB Conc 32.6 g/dL (30.0-36.0); Mean Corpuscular Hemoglobin 29.7 pg (28.0-34.0); Mean Corpuscular Volume 90.9 fl (80-94); Mean Platelet Volume 10.2 fL (7.4-10.4); Monocytes # 0.5 10^3/uL (0.2-0.9); Monocytes % 6.7 %; Neutrophils # 5.61 10^3/uL (1.8-7.7); Neutrophils % 81.3 %; Nucleated Red Blood Cells % 0 %; Platelet Count 234 10^3/cmm (130-400); Red Blood Count 4.18 10^6/uL (4.1-5.3); Red Cell Distribution Width 12.8 % (12.1-15.1); White Blood Count 6.9 10^3/uL (4.0-10.0)
[2021-06-05 04:53] LABS: NT Pro B Type Natriuretic Pept 471 pg/mL (0-125); Procalcitonin 0.19 ng/mL (0-0.5)
[2021-06-05 05:03] LABS: Slide Review Slide Review Perform
[2021-06-05 05:06] LABS: Alanine Aminotransferase 31 U/L (0-41); Albumin Level 2.9 g/dL (3.5-5.2); Alkaline Phosphatase 36 IU/L (40-130); Anion Gap 12.1 (5-19); Aspartate Amino Transferase 44 U/L (0-40); Blood Urea Nitrogen 14 mg/dL (6-20); C Reactive Protein 43.9 mg/L (0.0-4.9); Carbon Dioxide 32 mmol/L (22-29); Chloride 98 mmol/L (98-107); Creatine Phosphokinase 284 U/L (39-308); Globulin 2.8 g/dL (1.3-4.6); Glomerular Filtration Rate 94.4 mL/min (90-130); Glucose 129 mg/dL (65-115); Magnesium 2.3 mg/dL (1.7-2.3); Osmolality Calculated 288 mOsm/kg (285-295); Phosphorus 2.8 mg/dL (2.5-4.5); Potassium 4.1 mmol/L (3.5-5.1); Sodium 138 mmol/L (136-145); Total Bilirubin 0.3 mg/dL (0.15-1.2); Total Protein 5.7 g/dL (6.6-8.7)
[2021-06-05 05:41] LABS: ABG PCO2 46.5 mmHg (35-45); ABG PH Result 7.47 (7.35-7.45); Base Excess ABG 8.9 mmol/L (-2.0-2.0); Blood Gas Allen Test Pos; Blood Gas Sample Site Radial, right; Blood Gas Sample Type Arterial; HCO3 ABG 33.8 mmol/L (22-26); Oxygen Device BIPAP; PO2 ABG 77.2 mmHg (80.0-100.0)
--- NOTE | 2021-06-05 07:00 | XRR_ITS ---
PROCEDURE INFORMATION: Exam: XR Chest Exam date and time: 06/05/2021 7:00 AM Age: 36 years old Clinical indication: Shortness of breath; Additional info: SOB TECHNIQUE: Imaging protocol: XR of the chest. Views: 1 view. COMPARISON: CR (CHEST, ) 06/03/2021 10:33 PM FINDINGS: Lungs: Extensive mixed interstitial/alveolar opacities in the mid lungs bilaterally and the lung bases bilaterally, overall increased from prior study. These findings may represent any combination of pulmonary edema and pneumonia. Pleural spaces: No visible pneumothorax or pleural effusion. Heart/Mediastinum: Heart size within normal limits. Bones/joints: No emergent findings identified. XR/XR chest 1V portable [id number] IMPRESSION: 1. Extensive mixed interstitial/alveolar opacities in the mid lungs bilaterally and the lung bases bilaterally, overall increased from prior study. These findings may represent any combination of pulmonary edema and pneumonia. Radiation Dose CTDIVOL = (mGy): DLP = (mGy-cm)
--- NOTE | 2021-06-05 07:36 | PC.NURSE ---
Shift Summary; Multiple episodes of pt desat into 70% with quick removal of Bipap mask as needed. RT made adjustments to bipap as appropriate. PRN Xanax given in efforts to decrease anxiety. Pt unable to rest well overnight. Education on need for Bipap therapy in order to maintain O2 requirements. Education on remdesiver and clarification on want for med to be administered. Pt verbalized understanding and gave permission for RN to give medication. Report given to oncoming dayshift RN.
[2021-06-05] MEDS: budesonide 0.5 mg/2 mL Neb INHALATION ×2 (08:02→20:03)
[2021-06-05] MEDS: sertraline 100 mg Tablet PO (08:57)
[2021-06-05] MEDS: azithromycin 500 MG in sodium chloride 0.9% 250 ML 250 MG IV (08:57)
[2021-06-05] MEDS: cefepime 2,000 MG in sodium chloride 0.9% (plus) 50 ML 100 MG IV ×2 (08:57→20:40)
[2021-06-05] MEDS: pantoprazole DR 40 mg Tablet PO (08:57)
[2021-06-05 09:54] LABS: Vancomycin Trough 11.8 ug/mL (10-15)
--- NOTE | 2021-06-05 13:30 | P.PN_ITS ---
Subjective Subjective: Interval history: Patient was seen this morning, he remains on BiPAP, denies any shortness of breath, denies feeling tired, no lightheadedness, dizziness, no nausea, vomiting Vitals/I&O/Wt Last Vital Signs Temp 98.8 F 06/05/21 04:00 Pulse 99 06/05/21 11:42 Resp 18 06/05/21 11:42 BP 128/66 06/05/21 09:00 Pulse Ox 87 L 06/05/21 11:42 06/04/21 06/05/21 06/05/21 22:59 06:59 14:59 Intake Total 700 / 1255 450 / 1705 600 / 600 Output Total 375 / 875 500 / 1375 450 / 450 Balance 325 / 380 -50 / 330 150 / 150 Weight last 48 hrs Weight 137.467 kg Weight 142.428 kg Physical Exam Const: COMMON NORMALS: no acute distress and patient oriented x3 Resp: COMMON NORMALS: normal respiratory effort, No retractions and No use of accessory muscles AUSCULTATION: diminished lung sounds diffuse Cardio: COMMON NORMALS: regular rate, regular rhythm, S1 normal heart sound present and S2 normal heart sound present RATE: regular rate RHYTHM: regular rhythm HEART SOUNDS: S1 normal heart sound present and S2 normal heart sound present GI: COMMON NORMALS: Normal to inspection, nondistended, normoactive bowel sounds present, Soft to palpation, non-tender, No hepatosplenomegaly present, no masses and no bruits PALPATION: Yes Soft to palpation and Yes No hepatosplenomegaly present Extremity: COMMON NORMALS: no pedal edema Neuro: COMMON NORMALS: patient oriented x3 Psych: COMMON NORMALS: mental status grossly normal Data : 06/05/21 03:45 06/05/21 03:45 Micro: Microbiology 06/03/21 22:00 Blood Culture - Preliminary Blood NEGATIVE TO DATE 06/03/21 22:15 Blood Culture - Preliminary Blood NEGATIVE TO DATE A&P Assessment and plan (1) COVID-19 determined by clinical diagnostic criteria: Status: Acute (2) Acute respiratory failure: Status: Acute (3) Acute respiratory distress syndrome: Status: Acute (4) Pneumonia due to COVID-19 virus: Status: Acute Additional A&P Information Admit to ICU in view of acute respiratory failure with quickly increasing 02 requirements Covid PCR positive Remdisivir 200mg iv x 1 followed by 100mg iv daily dexamethasone 6mg IVP daily One dose of Actemra today duoneb q6h, budesonide q12h Broaden antibiotic coverage to vancomycin, cefepime, azithromycin Flutter valve/spirometer at bedside trend inflammatory markers including CRP, D dimer CTA PE negative for PE supplemental 02 to luis carlos 02 sat >92%, BIPAP ventilation One dose Lasix today DVT ppx: lovenox 40mg s/c daily troponins without sgnificant delta Attestations Medical Necessity Statement*: Patient requires hospitalization for acute respiratory failure secondary COVID-19 pneumonia Coding Level of Care Code Acute 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
[2021-06-05] MEDS: FUROsemide 10 mg/mL SDV 4mL 40 MG IVP (14:52)
[2021-06-05] MEDS: ascorbic acid 500 mg Tablet PO (17:52)
[2021-06-05] MEDS: remdesivir 100 MG in sodium chloride 0.9% (100 ml) 100 ML IV (17:53)
[2021-06-05 18:38] LABS: Quest SARS-CoV-2 RNA DETECTED (NOT DETECTED)
--- NOTE | 2021-06-05 19:00 | PC.NURSE ---
ASSUMING CARE Patient up in chair watching tv. HHFNC at 40L and 90%. Alert and oriented x 4. No needs at this time.
--- NOTE | 2021-06-05 22:45 | PC.NURSE ---
Tube feeding tubing and bottle changed per Q24H protocol.
[2021-06-06] VITALS (43 sets, daily range): BP systolic 110–151; BP diastolic 61–105; PULSE 65–111; RESP 13–33; TEMP 36.9–37.1; O2SAT 81–97
[2021-06-06] MEDS: enoxaparin 40 mg/0.4 mL Syringe SUBCUT (01:28)
[2021-06-06] MEDS: dexamethasone 4 mg/mL INJ 6 MG IVP (01:28)
[2021-06-06] MEDS: vancomycin 1,500 MG/300 ML PIGGYBACK 200 MG IV ×3 (01:29→17:28)
[2021-06-06] MEDS: ipratropium-albuterol 3 mL Neb INHALATION ×4 (02:26→20:04)
[2021-06-06 04:06] LABS: Hematocrit 37.1 % (42.0-52.0); Hemoglobin 12.3 g/dL (11.7-16.6); Lymphocytes # 0.8 10^3/uL (0.8-4.8); Lymphocytes % 14.4 %; Mean Corpuscular HGB Conc 33.2 g/dL (30.0-36.0); Mean Corpuscular Hemoglobin 29.9 pg (28.0-34.0); Mean Corpuscular Volume 90.3 fl (80-94); Mean Platelet Volume 9.6 fL (7.4-10.4); Monocytes # 0.4 10^3/uL (0.2-0.9); Monocytes % 7.3 %; Neutrophils # 4.23 10^3/uL (1.8-7.7); Neutrophils % 77.2 %; Nucleated Red Blood Cells % 0 %; Platelet Count 292 10^3/cmm (130-400); Red Blood Count 4.11 10^6/uL (4.1-5.3); Red Cell Distribution Width 12.7 % (12.1-15.1); White Blood Count 5.5 10^3/uL (4.0-10.0)
[2021-06-06 04:36] LABS: ABG PCO2 43.3 mmHg (35-45); ABG PH Result 7.47 (7.35-7.45); Base Excess ABG 7.3 mmol/L (-2.0-2.0); Blood Gas Allen Test Pos; Blood Gas Sample Site Radial, right; Blood Gas Sample Type Arterial; HCO3 ABG 31.8 mmol/L (22-26); Oxygen Device BIPAP; PO2 ABG 64.6 mmHg (80.0-100.0)
[2021-06-06 04:41] LABS: NT Pro B Type Natriuretic Pept 295 pg/mL (0-125); Procalcitonin 0.13 ng/mL (0-0.5)
[2021-06-06 04:42] LABS: Slide Review Slide Review Perform
[2021-06-06 04:56] LABS: Alanine Aminotransferase 71 U/L (0-41); Alkaline Phosphatase 54 IU/L (40-130); Anion Gap 18.9 (5-19); Aspartate Amino Transferase 84 U/L (0-40); Blood Urea Nitrogen 16 mg/dL (6-20); C Reactive Protein 20.5 mg/L (0.0-4.9); Calcium 8.1 mg/dL (8.5-10.5); Carbon Dioxide 25 mmol/L (22-29); Chloride 98 mmol/L (98-107); Globulin 2.7 g/dL (1.3-4.6); Glomerular Filtration Rate 94.4 mL/min (90-130); Glucose 134 mg/dL (65-115); Magnesium 2.1 mg/dL (1.7-2.3); Osmolality Calculated 289 mOsm/kg (285-295); Phosphorus 3.1 mg/dL (2.5-4.5); Potassium 3.9 mmol/L (3.5-5.1); Sodium 138 mmol/L (136-145); Total Bilirubin 0.4 mg/dL (0.15-1.2); Total Protein 5.7 g/dL (6.6-8.7)
[2021-06-06 04:57] LABS: Creatine Phosphokinase 462 U/L (39-308)
--- NOTE | 2021-06-06 06:24 | PC.NURSE ---
SHIFT SUMMARY Patient had uneventful shift. Patient up to chair until 2200 hour then laid down in bed on BIPAP 16/10 and 90%. HHFNC settings remained at 40L 90%. Patient on HHFNC since about 0500 and has been up to chair. 1100 mL urine output. Alert and oriented x 4. Patient desats to low 80s with coughing, but does well and remains in mid to high 80s with ambulation and exertion to bedside commode or chair to bed.
[2021-06-06 06:34] LABS: NT Pro B Type Natriuretic Pept 272 pg/mL (0-125)
--- NOTE | 2021-06-06 07:00 | XRR_ITS ---
PROCEDURE INFORMATION: Exam: XR Chest Exam date and time: 06/06/2021 7:00 AM Age: 36 years old Clinical indication: Dyspnea; Additional info: SOB TECHNIQUE: Imaging protocol: XR of the chest. Views: 1 view. COMPARISON: CR (CHEST, ) 06/05/2021 5:37 AM FINDINGS: Lungs: Persistent bilateral pulmonary consolidations most suspicious for pneumonia. Pleural spaces: Unremarkable. No pleural effusion. No pneumothorax. Heart/Mediastinum: The tracheal air column appears mildly narrowed and is deviated to the right probably secondary to previously described thyroid nodule. No cardiomegaly. Bones/joints: Minimal linear lucency overlies the upper right mediastinum which is of uncertain significance. XR/XR chest 1V portable [id number] IMPRESSION: 1. Persistent and similar bilateral pulmonary consolidations which are most pronounced in the lower lungs. 2. Minimal linear lucency at the right upper mediastinum which could be artifactual although a minimal amount of pneumomediastinum could give a similar appearance. Other consideration could include air position within a deviated esophagus. Consider further follow-up chest. Radiation Dose CTDIVOL = (mGy): DLP = (mGy-cm)
[2021-06-06] MEDS: sertraline 100 mg Tablet PO (07:59)
[2021-06-06] MEDS: cefepime 2,000 MG in sodium chloride 0.9% (plus) 50 ML 100 MG IV ×2 (08:00→20:46)
[2021-06-06] MEDS: zinc gluconate 50 mg Tablet PO (08:00)
[2021-06-06] MEDS: budesonide 0.5 mg/2 mL Neb INHALATION ×2 (08:00→20:04)
[2021-06-06] MEDS: ascorbic acid 500 mg Tablet PO ×2 (08:00→17:28)
[2021-06-06] MEDS: pantoprazole DR 40 mg Tablet PO (08:00)
[2021-06-06] MEDS: cholecalciferol (vitamin D3) 1,000 unit Tablet 1000 UNIT PO (08:00)
--- NOTE | 2021-06-06 08:31 | CT_ITS ---
WS: [id number] CT CHEST WITH INTRAVENOUS CONTRAST HISTORY: r/o pneumomediastinum TECHNIQUE: Contiguous 5 mm axial imaging performed on the thorax. Coronal and sagittal reformats are submitted. All CT scans at [facility] use at least one of these dose optimization techniques: automated exposure control; mA and/or kV adjustment per patient size (includes targeted exams where dose is matched to clinical indication); or iterative reconstruction. CONTRAST: Omnipaque 300; 95 mL IV. DLP: 1101.53 mGy.cm COMPARISON: 06/03/2021 Lungs and central airway: Moderate progression of bilateral pulmonary opacifications. Groundglass are as and more dense consolidations involving all lobes. Consistent with Covid 19 diagnosis. Pleura: Normal. No pleural effusion. Heart and pericardium: Normal size heart with no pericardial effusion. Mediastinum and dung: There is a moderate amount of pneumomediastinum and pneumopericardium. Air exte nds into the soft tissues of the RIGHT neck. There are a few small mediastinal and hilar lymph nodes. Vessels: Normal size aortic and pulmonary artery. No coronary artery calcifications. Chest wall and lower neck: There is a large cystic and solid mass involving the LEFT thyroid which ex tends substernal. Mass measures 5.0 x 6.5 cm and is causing mild tracheal deviation. Upper abdomen: Negative. Osseous structures: Straightening of the normal thoracic kyphosis. CT/CT chest w con* [id number] IMPRESSION: 1. Moderate amount of pneumomediastinum and pneumopericardium has progressed s cindy 06/03/2021. Small amount of subcutaneous emphysema along the inferior RIGHT neck. 2. Progression of bilateral pulmonary opacifications. Progression of dense con solidation and groundglass opacifications. 3. No pneumothorax. 4. 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 Nonurgent th yroid ultrasound is recommended. Recommend follow-up ultrasound after patient's acute illness resolves.
--- NOTE | 2021-06-06 10:18 | PC.NURSE ---
Assessment of patients RIGHT neck reveled palatable crackles. Patient reports no pain in area. CT this morning revealed, pneumomediastinum and pneumopericardium extending into the tissues of the patients right neck.
--- NOTE | 2021-06-06 10:36 | PC.CHAP ---
Pastoral Care Encounter/Spiritual Assessment Type of Contact [] Declined special officer visit [] Patient/Family/Request visit [] Outpatient visit [] Follow-up visit [] Physician referral [] Code/Alert [x] Routine visit [] Staff referral [] Actively dying [] Patient sleeping [] Family support [] [] Out of room [] Palliative care [] [] Receiving care in room [] Pre-surgical visit [] Trauma [] Long length of stay [x] ICU visit [x] Other: isolated... setting up in chair Relational/Emotional Strength [] Patient feels connected with others/family/visitors/staff [] Distress [] Loneliness/isolation [] Abandonment Spirituality of Patient [] Person of Pascale [] Attends Jew of their Pascale [] Believes in Prayer [] Reads Bible or Gnosticist materials [] There are Spiritual issues to be addressed Cephalometric Tracer Interventions [x] Prayer [] Active listening [] Non-anxious presence [] Spiritual/emotional support [] Crisis/trauma care [] Spiritual counseling [] Bereavement support [] Provided bereavement packet [] Provided Bible/devotional materials [] Provided toy/stuffed animal, coloring book to patient or family member [] Provided Communion [] Anointing/[place] [] Salvation [x] Completed spiritual assessment [] Other: Impact on Illness or Injury [] Angry [] Fearful [] Anxious [] Often cries [] Exhaustion [] Unable to work [] Unable to attend muslim [] Unable to walk/stand [] Unable to read [] Unable to drive [] Unable to eat/drink [] Unable to sleep [] Unable to be with family [] Patient intubated [] Other: Summary Time spent with patient
[2021-06-06] MEDS: ALPRAZolam 0.5 mg Tablet PO (12:49)
[2021-06-06] MEDS: azithromycin 500 MG in sodium chloride 0.9% 250 ML 250 MG IV (13:17)
--- NOTE | 2021-06-06 13:26 | PM.PN ---
Subjective Subjective: Interval history: Patient was seen and examine this morning, continue to be critically ill with significant desaturation on minimal exertion, though he says that overall he fells fine better then yesterday. Continue to have high supplemental oxygen requirement requiring 100 fio2 and 45Ls through [facility]. Medications: Reviewed: Yes Vitals/I&O/Wt Last Vital Signs Temp 98.7 F 06/06/21 10:00 Pulse 91 06/06/21 13:17 Resp 21 H 06/06/21 13:17 BP 132/79 06/06/21 12:00 Pulse Ox 87 L 06/06/21 13:17 06/05/21 06/06/21 06/06/21 22:59 06:59 14:59 Intake Total 1310 / 2270 780 / 3050 590 / 590 Output Total 1400 / 1850 500 / 2350 850 / 850 Balance -90 / 420 280 / 700 -260 / -260 Physical Exam Const: COMMON NORMALS: patient oriented x3 HENMT: COMMON NORMALS: normocephalic and atraumatic HEAD & SCALP: normocephalic and atraumatic Resp: EFFORT & INSPECTION: Yes tachypneic and Yes respiratory distress OTHER: Diminished air entry B/L Cardio: COMMON NORMALS: regular rate, regular rhythm, S1 normal heart sound present, S2 normal heart sound present, No gallops present (Cardio), No murmurs present (Cardio), No rub (Cardio) and Peripheral pulses 2+ throughout RATE: regular rate RHYTHM: regular rhythm HEART SOUNDS: S1 normal heart sound present and S2 normal heart sound present PERIPHERAL PULSES: Peripheral pulses 2+ throughout GI: COMMON NORMALS: Normal to inspection, nondistended, normoactive bowel sounds present, Soft to palpation, non-tender, No hepatosplenomegaly present and no masses AUSCULTATION: Yes normoactive bowel sounds PALPATION: Yes Soft to palpation and Yes No hepatosplenomegaly present RECTAL EXAM: Yes deferred Extremity: COMMON NORMALS: no clubbing, cyanosis or edema and no pedal edema Neuro: COMMON NORMALS: patient oriented x3 Data : 06/06/21 03:35 06/06/21 03:35 A&P Assessment and plan (1) COVID-19 determined by clinical diagnostic criteria: Status: Acute (2) Acute respiratory failure: Status: Acute (3) Acute respiratory distress syndrome: Status: Acute (4) Pneumonia due to COVID-19 virus: Status: Acute (5) Pneumomediastinum: Status: Acute (6) Pneumopericardium: Status: Acute (7) Subcutaneous emphysema: Status: Acute Additional A&P Information Admit to ICU in view of acute respiratory failure with quickly increasing 02 requirements Covid PCR positive Remdisivir 200mg iv x 1 followed by 100mg iv daily dexamethasone 6mg IVP daily One dose of Actemra today duoneb q6h, budesonide q12h Broaden antibiotic coverage to vancomycin, cefepime, azithromycin Flutter valve/spirometer at bedside trend inflammatory markers including CRP, D dimer CTA PE negative for PE supplemental 02 to luis carlos 02 sat >92%, BIPAP ventilation One dose Lasix today DVT ppx: lovenox 40mg s/c daily troponins without sgnificant delta Attestations Medical Necessity Statement*: PATIENT NEEDS TO BE IN HOSPITAL FOR THE MANAGEMENT OF RESPIRATORY FAILURE. Time Spent in Patient Care: Greater than 35 minutes (>than 50% of time spent in counselling and/or direct pt care on unit). Critical Care Time: Critical Care Time (min): 45 Other Attestations: The high probability of a clinically significant, sudden or life threatening deterioration of the patient's [] system(s) required my full and direct attention, intervention and personal management. The critical care time is as shown. 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
--- NOTE | 2021-06-06 17:28 | PC.NURSE ---
Patient was able to self prone with heated high flow fio2 at 100%. Oxygen sat is 95%
[2021-06-06] MEDS: remdesivir 100 MG in sodium chloride 0.9% (100 ml) 100 ML IV (18:17)
[2021-06-07] VITALS (43 sets, daily range): BP systolic 100–147; BP diastolic 63–87; PULSE 67–105; RESP 12–35; TEMP 36.6–36.7; O2SAT 54–97
[2021-06-07] MEDS: vancomycin 1,500 MG/300 ML PIGGYBACK 200 MG IV (00:52)
[2021-06-07] MEDS: dexamethasone 4 mg/mL INJ 6 MG IVP (02:21)
[2021-06-07] MEDS: enoxaparin 40 mg/0.4 mL Syringe SUBCUT (02:21)
[2021-06-07] MEDS: ipratropium-albuterol 3 mL Neb INHALATION ×3 (02:31→15:11)
[2021-06-07] MEDS: morphine 4 mg/mL SDV 1 mL 2 MG IVP ×2 (03:01→20:39)
[2021-06-07 04:57] LABS: Basophils % 0.1 %; Eosinophils % 0.1 %; Hematocrit 38.1 % (42.0-52.0); Hemoglobin 12.8 g/dL (11.7-16.6); Lymphocytes # 0.8 10^3/uL (0.8-4.8); Lymphocytes % 10.1 %; Mean Corpuscular HGB Conc 33.6 g/dL (30.0-36.0); Mean Corpuscular Hemoglobin 29.6 pg (28.0-34.0); Mean Corpuscular Volume 88.2 fl (80-94); Mean Platelet Volume 9.9 fL (7.4-10.4); Monocytes # 0.5 10^3/uL (0.2-0.9); Monocytes % 5.8 %; Neutrophils # 6.77 10^3/uL (1.8-7.7); Neutrophils % 82.6 %; Nucleated Red Blood Cells % 0 %; Platelet Count 357 10^3/cmm (130-400); Red Blood Count 4.32 10^6/uL (4.1-5.3); Red Cell Distribution Width 12.4 % (12.1-15.1); White Blood Count 8.2 10^3/uL (4.0-10.0)
--- NOTE | 2021-06-07 05:00 | XRR_ITS ---
PROCEDURE INFORMATION: Exam: XR Chest Exam date and time: 06/07/2021 5:00 AM Age: 36 years old Clinical indication: Dyspnea; Additional info: Pna TECHNIQUE: Imaging protocol: XR of the chest. Views: 1 view. Total images: 1 COMPARISON: CT chest w con* [id number] 06/06/2021 9:22 AM FINDINGS: Airway: Deviation of trachea to the right corresponding to CT findings of complex mass in the left thyroid gland. Lungs: Bilateral pulmonary opacities are again noted and have shown interval worsening from the prior exam. Pleural spaces: Unremarkable. No pleural effusion. No pneumothorax. Heart/Mediastinum: Heart size is stable when compared to the prior exam. Bones/joints: Osseous structures are unchanged from the prior exam. XR/XR chest 1V portable [id number] IMPRESSION: Bilateral pulmonary opacities are again noted and have shown interval worsening from the prior exam.
[2021-06-07 05:23] LABS: Alanine Aminotransferase 112 U/L (0-41); Alkaline Phosphatase 61 IU/L (40-130); Anion Gap 17.4 (5-19); Aspartate Amino Transferase 97 U/L (0-40); Blood Urea Nitrogen 15 mg/dL (6-20); C Reactive Protein 11.1 mg/L (0.0-4.9); Calcium 8.1 mg/dL (8.5-10.5); Carbon Dioxide 25 mmol/L (22-29); Chloride 98 mmol/L (98-107); Globulin 2.6 g/dL (1.3-4.6); Glomerular Filtration Rate 94.4 mL/min (90-130); Glucose 113 mg/dL (65-115); Magnesium 1.9 mg/dL (1.7-2.3); Osmolality Calculated 286 mOsm/kg (285-295); Phosphorus 3.6 mg/dL (2.5-4.5); Potassium 3.4 mmol/L (3.5-5.1); Sodium 137 mmol/L (136-145); Total Bilirubin 0.5 mg/dL (0.15-1.2); Total Protein 5.6 g/dL (6.6-8.7)
[2021-06-07 05:26] LABS: NT Pro B Type Natriuretic Pept 741 pg/mL (0-125)
--- NOTE | 2021-06-07 05:33 | NUR.SHIFT ---
Shift Summary: Patient oxygen demand increased to 45L 100% on HHF plus 15L on NRB to maintain sats >85 at this time. At 0145 patient up to chair, patient O2 level dropped to, NRB at that time was applied, took approximately 20-25 minutes to recover. Patient does not appear to be in respiratory distress when saturation are low, RR 12-16, not using accessory muscles, nonlabored breathing. Patient self prone throughout the night and up to chair twice. At this time patient is now breathing RR 25-30s, nonlabored breathing but states I feel more tired Education provided on possible intubation if oxygen needs continue to increase at this time.
[2021-06-07 05:55] LABS: Creatine Phosphokinase 1191 U/L (39-308)
[2021-06-07] MEDS: budesonide 0.5 mg/2 mL Neb INHALATION (07:42)
--- NOTE | 2021-06-07 08:16 | P.PN_ITS ---
Subjective Subjective: Interval history: Patient was seen and examine this morning, continue to be critically ill with significant desaturation on minimal exertion, though he clinically says that he is comfortable, he Is a still tolerating heated high flow oxygen as well as nonrebreather mask was added last night As he was desaturating.He also spent some time in chair today. Medications: Reviewed: Yes Vitals/I&O/Wt Last Vital Signs Temp 98 F 06/07/21 04:00 Pulse 89 06/07/21 07:55 Resp 22 H 06/07/21 07:55 BP 127/73 06/07/21 06:30 Pulse Ox 94 06/07/21 07:55 06/06/21 06/07/21 06/07/21 22:59 06:59 14:59 Intake Total 690 / 1770 540 / 2310 Output Total 700 / 1550 650 / 2200 Balance -10 / 220 -110 / 110 Weight last 48 hrs Weight 135.369 kg Physical Exam Const: COMMON NORMALS: patient oriented x3 HENMT: COMMON NORMALS: normocephalic and atraumatic HEAD & SCALP: normocephalic and atraumatic Resp: EFFORT & INSPECTION: Yes tachypneic and Yes respiratory distress OTHER: Diminished air entry B/L Cardio: COMMON NORMALS: regular rate, regular rhythm, S1 normal heart sound present, S2 normal heart sound present, No gallops present (Cardio), No murmurs present (Cardio), No rub (Cardio) and Peripheral pulses 2+ throughout RATE: regular rate RHYTHM: regular rhythm HEART SOUNDS: S1 normal heart sound present and S2 normal heart sound present PERIPHERAL PULSES: Peripheral pulses 2+ throughout GI: COMMON NORMALS: Normal to inspection, nondistended, normoactive bowel sounds present, Soft to palpation, non-tender, No hepatosplenomegaly present and no masses AUSCULTATION: Yes normoactive bowel sounds PALPATION: Yes Soft to palpation and Yes No hepatosplenomegaly present RECTAL EXAM: Yes deferred Extremity: COMMON NORMALS: no clubbing, cyanosis or edema and no pedal edema Neuro: COMMON NORMALS: patient oriented x3 Data : 06/07/21 04:19 06/07/21 04:19 A&P Assessment and plan (1) COVID-19 determined by clinical diagnostic criteria: Status: Acute (2) Acute respiratory failure: Status: Acute (3) Acute respiratory distress syndrome: Status: Acute (4) Pneumonia due to COVID-19 virus: Status: Acute (5) Pneumomediastinum: Status: Acute (6) Pneumopericardium: Status: Acute (7) Subcutaneous emphysema: Status: Acute Additional A&P Information Admit to ICU in view of acute respiratory failure with quickly increasing 02 requirements Covid PCR positive CTA PE negative for PE Repeat CT chest without contrast: Moderate amount of pneumomediastinum and pneumopericardium has progressed since 06/03/2021. Small amount of subcutaneous emphysema along the inferior RIGHT neck. Progression of bilateral pulmonary opacifications. Progression of dense consolidation and groundglass opacifications. No pneumothorax. 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 trend inflammatory markers including CRP, D dimer Monitor procalcitonin Remdisivir 200mg iv x 1 followed by 100mg iv daily for 5 days dexamethasone 6mg IVP daily for 10 days S/P One dose of Actemra today duoneb q6h, budesonide q12h On broad-spectrum antibiotics cefepime, vancomycin and azithromycin has been discontinued Flutter valve/spirometer at bedside supplemental 02 to luis carlos 02 sat >92%, BIPAP ventilation Lasix as needed DVT ppx: lovenox 40mg s/c daily Attestations Medical Necessity Statement*: Patient needs to be in hospital for management of respiratory failure secondary to severe Covid pneumonia Time Spent in Patient Care: Greater than 35 minutes (>than 50% of time spent in counselling and/or direct pt care on unit) . Critical Care Time: Critical Care Time (min): 40 Other Attestations: The high probability of a clinically significant, sudden or life threatening deterioration of the patient's [] system(s) required my full and direct attention, intervention and personal management. The critical care time is as shown. 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
[2021-06-07 08:44] LABS: ABG PCO2 39.6 mmHg (35-45); ABG PH Result 7.48 (7.35-7.45); Base Excess ABG 5.9 mmol/L (-2.0-2.0); Blood Gas Allen Test POS; HCO3 ABG 29.8 mmol/L (22-26); PO2 ABG 52.7 mmHg (80.0-100.0)
[2021-06-07 08:45] LABS: Blood Gas Sample Type ARTERIAL; Oxygen Device HHFNC
[2021-06-07 08:46] LABS: Arterial Blood Gas Hematocrit 41.9 % (42-52)
[2021-06-07] MEDS: zinc gluconate 50 mg Tablet PO (10:13)
[2021-06-07] MEDS: ascorbic acid 500 mg Tablet PO (10:13)
[2021-06-07] MEDS: sertraline 100 mg Tablet PO (10:13)
[2021-06-07] MEDS: cholecalciferol (vitamin D3) 1,000 unit Tablet 1000 UNIT PO (10:13)
[2021-06-07] MEDS: pantoprazole DR 40 mg Tablet PO (10:13)
[2021-06-07] MEDS: azithromycin 500 MG in sodium chloride 0.9% 250 ML 250 MG IV (10:15)
[2021-06-07] MEDS: cefepime 2,000 MG in sodium chloride 0.9% (plus) 50 ML 100 MG IV ×2 (10:16→21:32)
[2021-06-07] MEDS: lidocaine 1% 5 ML in potassium chloride premix 100 ML 50 ML IV (10:18)
[2021-06-07] MEDS: ALPRAZolam 0.5 mg Tablet PO (11:29)
[2021-06-07] MEDS: ondansetron 2 mg/ML SDV 2 mL 4 MG IVP (11:29)
--- NOTE | 2021-06-07 13:21 | P.CONIM_ITS ---
Providers/Reason For Consult Consulting Physician/Specialty*: Pulmonary critical care medicine Reason for Consult*: Severe COVID-19 Attending Physician: Deshaun Sultana MD Primary Care Provider: KIERAN Yang History of Present Illness History of Present Illness Cabrera Bower is a 36 year old male who has been hospitalized since June 03 with severe COVID-19. According to the medical records, his initial illness started on May 24. At that time the patient presented to his family care provider with URTI symptoms. He was treated with antihistamine, amoxicillin. He was seen by primary care provider again on June 01 with fever chills and worsening body ache. He was given 60 mg of prednisone daily. Testing for COVID-19 at that time was positive. The patient presented to the hospital on June 04 with worsening shortness of breath. His oxygen saturation was 70% on room air. He was initially placed on nasal cannula and subsequently to BiPAP. His CT angiogram for pulmonary embolism was negative. The patient has bilateral diffuse groundglass opacity. 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 He was started on remdesivir, dexamethasone. He has been on broad-spectrum antibiotics with vancomycin, cefepime and azithromycin since June 04. The patient required BiPAP 80% oxygen. He was transferred to ICU on June 05. He received a dose of Tocilizumab on June 05. A chest x-ray on June 06 revealed mild pneumomediastinum. Chest x-ray today revealed worsening bilateral pulmonary infiltrate. There is no pleural effusion or worsening pneumomediastinum. Her laboratory work-up did not reveal any leukocytosis. Pro-Jagdeep has been normal. The CRP has come down since she received the Tocilizumab. The patient was seen and examined in the ICU today. The patient appears to be comfortable. He is able to give me a full history without having to stop. Currently he is on 100% high flow nasal cannula with nonrebreather mask and his oxygen saturation is hovering in the low nineties to mid nineties. The patient does have significant desaturation with exertion. Review of Systems Narrative: General: Fatigue Skin: No rash HEENT: Mild nasal congestion and sinus pressure Neck: Neck swelling consistent with mass in the left thyroid lobe Respiratory: Patient will cough, minimal sputum production Cardiovascular: No chest pain, or orthopnea, no lower extremity edema Gastrointestinal: No abdominal pain, nausea, vomiting Musculoskeletal: Generalized malaise Neurological: Patient is awake alert and oriented x3, no paralysis, gross motor function is normal. Psychiatric: The patient is anxious about his prognosis Meds/Allergies Home Medications and Allergies Home Medications Medication Instructions Recorded Confirmed Last Taken Type fluticasone propionate 50 1 spray INTRANASAL Q12H #15.8 ml 08/30/20 06/04/21 Unknown Rx mcg/actuation nasal spray,suspension alprazolam 1 mg tablet 1 mg PO DAILY PRN #30 tab 04/18/21 06/04/21 Unknown Rx sertraline 100 mg tablet 100 mg PO DAILY #30 tab 05/06/21 06/04/21 Unknown Rx acetaminophen 325 mg capsule 325 mg PO QID PRN 05/24/21 06/04/21 Unknown History ciprofloxacin 0.3 %-dexamethasone 4 drp OTIC (EAR) BID 7 Days #7.5 ml 05/24/21 06/04/21 Unknown Rx 0.1 % ear drops,suspension fexofenadine 60 mg-pseudoephedrine 1 tab PO Q12H PRN 14 Days #30 tab 05/24/21 06/04/21 Unknown Rx ER 120 mg tablet,ext.release,12 hr prednisone 20 mg tablet 60 mg PO DAILY 9 Days #18 tab 06/01/21 06/04/21 Unknown Rx Allergies Allergy/AdvReac Type Severity Reaction Status Date / Time No Known Allergies Allergy Verified 06/01/21 11:17 Current Medications Current Medications Generic Name Dose Route Start Last Admin Trade Name Freq PRN Reason Stop Dose Admin Albuterol/Ipratropium 3 ml 06/04/21 03:00 06/07/21 08:02 Ipratropium-Albuterol 3 Ml Neb INHALATION 3 ml Q6H.RESPIRATORY FIOR Administration Alprazolam 0.5 mg 06/04/21 02:21 06/07/21 11:29 Alprazolam 0.5 Mg Tablet PO 0.5 mg BID PRN Administration ANXIETY Dexamethasone 6 mg 06/05/21 02:00 06/07/21 02:21 Dexamethasone 4 Mg/Ml Inj IVP 6 mg Q24H FIOR Administration Enoxaparin Sodium 40 mg 06/04/21 02:15 06/07/21 02:21 Enoxaparin 40 Mg/0.4 Ml Syringe SUBCUT 40 mg Q24H FIOR Administration Remdesivir 100 mg/ Sodium 100 mls @ 100 mls/hr 06/04/21 18:00 06/06/21 19:20 Chloride IV 06/08/21 18:59 Infused Q24H FIOR Infusion Cefepime HCl 2,000 mg/ Sodium 50 mls @ 100 mls/hr 06/04/21 09:00 06/07/21 12:17 Chloride IV Infused Q12H FIOR Infusion Protocol Morphine Sulfate 2 mg 06/04/21 02:15 06/07/21 03:01 Morphine 4 Mg/Ml Sdv 1 Ml IVP 2 mg Q4H PRN Administration SEVERE PAIN Ondansetron HCl 4 mg 06/04/21 02:15 06/07/21 11:29 Ondansetron 2 Mg/Ml Sdv 2 Ml IVP 4 mg Q8H PRN Administration vomiting, or N/V if npo Pantoprazole Sodium 40 mg 06/04/21 09:00 06/07/21 10:[address] 40 Mg Tablet PO 40 mg DAILY FIOR Administration Sertraline HCl 100 mg 06/04/21 09:00 06/07/21 10:13 Sertraline 100 Mg Tablet PO 100 mg DAILY FIOR Administration PFSH Acute PFSH: Medical History Borderline personality disorder Chronic knee pain Congenital heart problem Dysthymic disorder Major depressive disorder, recurrent, in full remission Psychiatric care Social phobia, unspecified Surgical History H/O rhinoplasty Social History Smoking and tobacco status: never smoked Second hand smoke exposure: No Smoking risk assessment/counseling performed?: No Reason smoking risk assessment not done: not indicated Vitals/I&O/Wt Last Vital Signs Temp 98 F 06/07/21 04:00 Pulse 88 06/07/21 12:00 Resp 23 H 06/07/21 12:00 BP 133/82 06/07/21 09:00 Pulse Ox 88 L 06/07/21 12:00 06/06/21 06/07/21 06/07/21 22:59 06:59 14:59 Intake Total 690 / 1770 540 / 2310 300 / 300 Output Total 700 / 1550 650 / 2200 Balance - / -110 / 110 300 / 300 Weight last 48 hrs Weight 298 lb 7 oz Physical Exam Narrative: EXAM NARRATIVE: General: Patient is awake alert and oriented, tachypneic Neck: No JVD, left thyroid lobe mass with tracheal shift to the right Respiratory: Auscultation: Reduced breath sound bilaterally, no crackles wheezing or rhonchi Cardiovascular: Regular rate and rhythm, S1-S2 present, no murmur, no peripheral edema. Abdomen: Soft, nontender, distended from obesity, positive bowel sound Musculoskeletal: No obvious joint deformity Skin: No rash Neuro: Mental status is normal, no gross cranial nerve deficit, normal motor and coordination. Urinary Catheter Management^: [place]: Cath Placed During This Visit: yes Urinary Catheter Date of Insertion: 06/07/21 Urinary Catheter Time of Insertion: 10:00 Data Other Data: Attestation for Other Data: I personally reviewed and interpreted the following: Other data: I have reviewed his laboratory, microbiologic and radiologic data. Please see the HPI for detail A&P Assessment and plan (1) Acute respiratory distress syndrome (ARDS) due to severe acute respiratory syndrome coronavirus 2 (SARS-CoV-2): This is a 36-year-old gentleman with ARDS secondary to SARS-CoV-2 pneumonia. The patient is currently on high flow nasal cannula 45 L 100% and nonrebreather mask and his oxygen saturation is in the low to mid 90s. CT scan of the chest revealed diffuse bilateral groundglass opacities consistent with COVID-19. The patient does not have any change in his mental status. The patient is able to provide history without any significant shortness of breath or having to stop while completing a sentence. At this point, we will continue the current management. If he does have evidence of worsening mental status, hypoxia the patient will likely need intubation and mechanical ventilation. I have discussed this in detail with the patient and his . Currently the patient is on remdesivir, dexamethasone. He had received a dose of Tocilizumab on June 05. We will continue the supportive treatment. If the patient does need to get intubated, he will need to get proned and be evaluated for ECMO if necessary. Status: Acute (2) Pneumomediastinum: The patient had evidence of pneumomediastinum on chest radiology and CT scan of the chest. This is likely secondary to Gale effect or alveolar injury secondary to COVID-19. We are avoiding noninvasive positive pressure ventilation for the time being. In case, if the patient does need to get intubated we will keep a very close eye on the development of pneumothorax. Status: Acute (3) Major depressive disorder, recurrent, in full remission: The patient is on SSRI which has been recently shown multiple studies to be associated with a better outcome. We will continue with that. If the patient becomes delirious, we would likely use Precedex. Status: Acute Coding Level of Care Code Acute Emergency Medical Dispatcher for [facility] Diagnoses Acute respiratory distress syndrome (ARDS) due to severe acute respiratory syndrome coronavirus 2 (SARS-CoV-2) U07.1; J80 Pneumomediastinum J98.2 Major depressive disorder, recurrent, in full remission F33.42 Time Spent (min) 43
[2021-06-07] MEDS: remdesivir 100 MG in sodium chloride 0.9% (100 ml) 100 ML IV (17:38)
[2021-06-07] MEDS: LORazepam 2 mg/mL INJ 1 mL 0.5 MG IVP (21:16)
[2021-06-08] VITALS (35 sets, daily range): BP systolic 101–158; BP diastolic 64–105; PULSE 74–105; RESP 16–31; TEMP 36.6–37.6; O2SAT 80–92
[2021-06-08] MEDS: dexamethasone 4 mg/mL INJ 6 MG IVP (01:57)
[2021-06-08] MEDS: enoxaparin 40 mg/0.4 mL Syringe SUBCUT (01:58)
--- NOTE | 2021-06-08 02:04 | PC.NURSE ---
Dr Olguin rounding on patient received orders for 20 meq of potassium and 20mg IVP of lasix one time dose. Continue care.
[2021-06-08] MEDS: lidocaine 1% 5 ML in potassium chloride premix 100 ML 50 ML IV (02:34)
[2021-06-08] MEDS: FUROsemide 10 mg/mL SDV 2mL 20 MG IVP (02:35)
[2021-06-08] MEDS: ipratropium-albuterol 3 mL Neb INHALATION ×4 (03:11→20:28)
[2021-06-08 04:37] LABS: ABG PCO2 43.2 mmHg (35-45); ABG PH Result 7.47 (7.35-7.45); Arterial Blood Gas Hematocrit 44.2 % (42-52); Base Excess ABG 6.6 mmol/L (-2.0-2.0); Blood Gas Allen Test Pos; Blood Gas Operator Identificat JB; Blood Gas Sample Site Radial, left; Blood Gas Sample Type Arterial; HCO3 ABG 31.2 mmol/L (22-26); Oxygen Device HAG; PO2 ABG 51.5 mmHg (80.0-100.0)
[2021-06-08 05:11] LABS: Basophils % 0.2 %; Eosinophils # 0.1 10^3/uL (0.0-0.8); Eosinophils % 1.2 %; Hemoglobin 13.6 g/dL (11.7-16.6); Lymphocytes # 0.6 10^3/uL (0.8-4.8); Lymphocytes % 5.1 %; Mean Corpuscular HGB Conc 33.2 g/dL (30.0-36.0); Mean Corpuscular Hemoglobin 29.4 pg (28.0-34.0); Mean Corpuscular Volume 88.7 fl (80-94); Mean Platelet Volume 9.5 fL (7.4-10.4); Monocytes # 0.4 10^3/uL (0.2-0.9); Monocytes % 3.5 %; Neutrophils # 10.52 10^3/uL (1.8-7.7); Neutrophils % 88.7 %; Nucleated Red Blood Cells % 0 %; Platelet Count 296 10^3/cmm (130-400); Red Blood Count 4.62 10^6/uL (4.1-5.3); Red Cell Distribution Width 12.7 % (12.1-15.1); White Blood Count 11.9 10^3/uL (4.0-10.0)
[2021-06-08 05:29] LABS: Lactate Dehydrogenase 716 U/L (135-225)
[2021-06-08 05:31] LABS: Alanine Aminotransferase 148 U/L (0-41); Albumin Level 3.1 g/dL (3.5-5.2); Alkaline Phosphatase 73 IU/L (40-130); Aspartate Amino Transferase 95 U/L (0-40); Blood Urea Nitrogen 15 mg/dL (6-20); C Reactive Protein 6.2 mg/L (0.0-4.9); Calcium 8.1 mg/dL (8.5-10.5); Carbon Dioxide 25 mmol/L (22-29); Chloride 99 mmol/L (98-107); Globulin 2.7 g/dL (1.3-4.6); Glomerular Filtration Rate 94.4 mL/min (90-130); Glucose 119 mg/dL (65-115); Osmolality Calculated 288 mOsm/kg (285-295); Sodium 138 mmol/L (136-145); Total Bilirubin 0.5 mg/dL (0.15-1.2); Total Protein 5.8 g/dL (6.6-8.7)
--- NOTE | 2021-06-08 05:32 | NUR.SHIFT ---
Shift Summary: Patient self prone throughoth the night [id number], Oxygen sat during that time 78-85%, not symptomatic of hypoxia on HHF 45L/100% and NRB 15L. aware, no orders received with notification. Up to chair this AM, with O2 sat 85-92% Lasix given as ordered-1800ml output.
[2021-06-08 05:40] LABS: NT Pro B Type Natriuretic Pept 265 pg/mL (0-125)
[2021-06-08 05:57] LABS: D Dimer >= 20.00 ug/mIFEU (0-0.59)
[2021-06-08] MEDS: cefepime 2,000 MG in sodium chloride 0.9% (plus) 50 ML 100 MG IV ×2 (08:18→20:10)
[2021-06-08] MEDS: pantoprazole DR 40 mg Tablet PO (08:33)
[2021-06-08] MEDS: sertraline 100 mg Tablet PO (08:33)
--- NOTE | 2021-06-08 10:10 | XR_ITS ---
WS: [id number] Exam: XR chest 1V portable [id number] Date/Time of Exam: 06/08/2021 10:13 AM Reason For Exam: hypoxia Comparison 06/07/2021. Again noted are extensive bilateral pulmonary infiltrates. There is been little change since the prio r study. The heart is upper limits normal size. No pneumothorax or pleural effusion seen. Prominent s uperior mediastinum. There is rightward tracheal deviation unchanged. XR/XR chest 1V portable [id number] IMPRESSION: 1. Widespread patchy consolidating infiltrates in both lungs showing little naa nge since prior study. 2. Widening of the superior mediastinum and rightward tracheal deviation.
--- NOTE | 2021-06-08 10:41 | PC.CHAP ---
Pastoral Care Encounter/Spiritual Assessment Type of Contact [] Declined heating equipment repairer visit [] Patient/Family/Request visit [] Outpatient visit [] Follow-up visit [] Physician referral [] Code/Alert [x] Routine visit [] Staff referral [] Actively dying [x] Patient sleeping [] Family support [] [] Out of room [] Palliative care [] [] Receiving care in room [] Pre-surgical visit [] Trauma [] Long length of stay [x] ICU visit [x] Other: patient placed on tummy for breathing... covid Relational/Emotional Strength [] Patient feels connected with others/family/visitors/staff [] Distress [] Loneliness/isolation [] Abandonment Spirituality of Patient [] Person of Pascale [] Attends Druze of their Pascale [] Believes in Prayer [] Reads Bible or Mu-Ism materials [] There are Spiritual issues to be addressed Plant Safety Leader Interventions [x] Prayer [] Active listening [] Non-anxious presence [] Spiritual/emotional support [] Crisis/trauma care [] Spiritual counseling [] Bereavement support [] Provided bereavement packet [] Provided Bible/devotional materials [] Provided toy/stuffed animal, coloring book to patient or family member [] Provided Communion [] Anointing/[place] [] Salvation [x] Completed spiritual assessment [] Other: Impact on Illness or Injury [] Angry [] Fearful [] Anxious [] Often cries [] Exhaustion [] Unable to work [] Unable to attend baptist [] Unable to walk/stand [] Unable to read [] Unable to drive [] Unable to eat/drink [] Unable to sleep [] Unable to be with family [] Patient intubated [] Other: Summary Time spent with patient
[2021-06-08] MEDS: remdesivir 100 MG in sodium chloride 0.9% (100 ml) 100 ML IV (18:13)
--- NOTE | 2021-06-08 18:37 | P.PN_ITS ---
Subjective Subjective: Interval history: Patient was seen and examine this morning, continue to be critically ill, so far he has continued to be on HHFONC 100 % 50 L/MIN, as well as on nonrebreather mask, says he feels fine. Received Lasix 20 mg IV one-time dose overnight, with good urine output. A.m. chest x-ray: Widespread patchy consolidating infiltrates in both lungs, with no significant change from the past. Medications: Reviewed: Yes Vitals/I&O/Wt Last Vital Signs Temp 98 F 06/08/21 04:00 Pulse 87 06/08/21 18:00 Resp 24 H 06/08/21 18:00 BP 138/86 06/08/21 18:00 Pulse Ox 86 L 06/08/21 18:00 06/08/21 06/08/21 06/08/21 06:59 14:59 22:59 Intake Total 105 / 1380 410 / 410 120 / 530 Output Total 1800 / 2600 700 / 700 Balance -1695 / -1220 410 / 410 -580 / -170 Weight last 48 hrs Weight 135.369 kg Physical Exam Const: COMMON NORMALS: patient oriented x3 HENMT: COMMON NORMALS: normocephalic and atraumatic HEAD & SCALP: n ormocephalic and atraumatic Resp: EFFORT & INSPECTION: Yes tachypneic and Yes respiratory distress OTHER: Diminished air entry B/L Cardio: COMMON NORMALS: regular rate, regular rhythm, S1 normal heart sound present, S2 normal heart sound present, No gallops present (Cardio), No murmurs present (Cardio), No rub (Cardio) and Peripheral pulses 2+ throughout RATE: regular rate RHYTHM: regular rhythm HEART SOUNDS: S1 normal heart sound present and S2 normal heart sound present PERIPHERAL PULSES: Peripheral pulses 2+ throughout GI: COMMON NORMALS: Normal to inspection, nondistended, normoactive bowel sounds present, Soft to palpation, non-tender, No hepatosplenomegaly present and no masses AUSCULTATION: Yes normoactive bowel sounds PALPATION: Yes Soft to palpation and Yes No hepatosplenomegaly present RECTAL EXAM: Yes deferred Extremity: COMMON NORMALS: no clubbing, cyanosis or edema and no pedal edema Neuro: COMMON NORMALS: patient oriented x3 Urinary Catheter Management^: Ponce: Cath Placed During This Visit: yes Reason for Continuing Indwelling Catheter: Accurate Measurement of Urinary Output in Critically Ill Patients Urinary Catheter Date of Insertion: 06/07/21 Urinary Catheter Time of Insertion: 10:00 Data : 06/08/21 04:20 06/08/21 04:20 A&P Assessment and plan (1) COVID-19 determined by clinical diagnostic criteria: Status: Acute (2) Acute respiratory failure: Status: Acute (3) Acute respiratory distress syndrome: Status: Acute (4) Pneumonia due to COVID-19 virus: Status: Acute (5) Pneumomediastinum: Status: Acute (6) Pneumopericardium: Status: Acute (7) Subcutaneous emphysema: Status: Acute Additional A&P Information Admit to ICU in view of acute respiratory failure with quickly increasing 02 requirements Covid PCR positive CTA PE negative for PE Repeat CT chest without contrast: Moderate amount of pneumomediastinum and pneumopericardium has progressed since 06/03/2021. Small amount of subcutaneous emphysema along the inferior RIGHT neck. Progression of bilateral pulmonary opacifications. Progression of dense consolidation and groundglass opacifications. No pneumothorax. 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 trend inflammatory markers including CRP, D dimer Monitor procalcitonin Remdisivir 200mg iv x 1 followed by 100mg iv daily for 5 days dexamethasone 6mg IVP daily for 10 days S/P One dose of Actemra today duoneb q6h, budesonide q12h On broad-spectrum antibiotics cefepime, vancomycin and azithromycin has been discontinued Flutter valve/spirometer at bedside supplemental 02 to luis carlos 02 sat >92%, BIPAP ventilation Lasix as needed DVT ppx: lovenox 40mg s/c daily Attestations Medical Necessity Statement*: Patient needs to be in hospital for management of severe respiratory failure Time Spent in Patient Care: Greater than 35 minutes (>than 50% of time spent in counselling and/or direct pt care on unit) . Critical Care Time: Critical Care Time (min): 35 Other Attestations: The high probability of a clinically significant, sudden or life threatening deterioration of the patient's [] system(s) required my full and direct attention, intervention and personal management. The critical care time is as shown. This time is in addition to time spent performing any reported procedures but includes the following: [x] Data and vital sign review and interpretation [x] Patient assessment, examination and intervention [x] Documentation [x] Medication orders and management Coding Level of Care Code Acute Suture Winder Hand for g Fwd Diagnoses COVID-19 determined by clinical diagnostic criteria U07.1 Acute respiratory failure J96.00 Acute respiratory distress syndrome J80 Pneumonia due to COVID-19 virus U07.1; J12.82 Pneumomediastinum J98.2 Pneumopericardium I31.9 Subcutaneous emphysema T79.7XXA
[2021-06-08] MEDS: ALPRAZolam 0.5 mg Tablet PO (19:35)
--- NOTE | 2021-06-08 19:35 | PC.NURSE ---
Anxiety Patient states I'm feeling a bit more anxious, in addition to asking if there was any medication he could take to decrease feeling of anxiety. Patient's oxygen saturation low 80s on HFNC 50L on 100% FIO2 with a nonrebreather. Patient laying on stomach to increase lung expansion. All other vitals stable. Xanax administered per AUG. Education provided on strength and purpose of XAnax, purpose of current position, and oxygen requirements. Patient verbalized understanding.
[2021-06-08] MEDS: LORazepam 2 mg/mL INJ 1 mL 0.5 MG IVP (21:33)
--- NOTE | 2021-06-08 21:33 | PC.NURSE ---
Increasing Anxiety Patient states wish to speak with Dr. Olguin about intubation options, while also stating that he is still feeling quite anxious. Patient states I just feel like if I keep going like I am that I will crash. Dr. Olguin notified, states intention to speak with patient when available. Education provided on current oxygen requirement with resulting current oxygen saturation, expected oxygen saturation with COVID19, the benefits of staying in the prone position, and Dr. Olguin's intent to speak with patient. Ativan administered per MAR, pillows placed for further comfort. O2 sat currently low-mid 80s. All other vitals stable.
[2021-06-09] VITALS (50 sets, daily range): BP systolic 90–167; BP diastolic 58–99; PULSE 75–111; RESP 16–36; TEMP 36.6–36.8; O2SAT 78–94
[2021-06-09] MEDS: enoxaparin 40 mg/0.4 mL Syringe SUBCUT ×2 (01:41→15:29)
[2021-06-09] MEDS: dexamethasone 4 mg/mL INJ 6 MG IVP (01:41)
[2021-06-09] MEDS: ipratropium-albuterol 3 mL Neb INHALATION ×4 (03:01→20:12)
--- NOTE | 2021-06-09 03:48 | PC.NURSE ---
Physician Communication Patient's status declining. Patient's cough is continuous producing balderrama, blood streaked secretions. Patient's vitals are as follows while on high flow nasal cannula 100% FIO2 at 50 L in addition to a nonrebreather: o2 sat 78%, HR 108, RR in the mid 20s, BP 138/77. Patient is alert and oriented x4. Dr. Olguin notified of patient vitals and difficulty of maintaining an acceptable oxygen saturation. No new orders received. Emergent intubation discussed and statement made that intubation is desired only with anesthesiology due to potential difficulty of procedure.
--- NOTE | 2021-06-09 05:00 | PC.NURSE ---
[facility] Patient's cough abated and position changed to lay on abdomen. Patient states he feels like (he) coughed up all the extra stuff in his lungs and that he feels like that helps him breathe. Oxygen saturation now maintaining high 80s to mid 90s. All other vitals stable. Dr. Olguin aware of change.
[2021-06-09 05:31] LABS: Lactate Dehydrogenase 704 U/L (135-225)
[2021-06-09 05:32] LABS: Alanine Aminotransferase 126 U/L (0-41); Albumin Level 3.2 g/dL (3.5-5.2); Alkaline Phosphatase 79 IU/L (40-130); Anion Gap 19.6 (5-19); Aspartate Amino Transferase 72 U/L (0-40); Blood Urea Nitrogen 12 mg/dL (6-20); C Reactive Protein 4.2 mg/L (0.0-4.9); Calcium 7.9 mg/dL (8.5-10.5); Carbon Dioxide 23 mmol/L (22-29); Chloride 99 mmol/L (98-107); Globulin 2.1 g/dL (1.3-4.6); Glomerular Filtration Rate 108.2 mL/min (90-130); Glucose 116 mg/dL (65-115); Osmolality Calculated 287 mOsm/kg (285-295); Potassium 3.6 mmol/L (3.5-5.1); Sodium 138 mmol/L (136-145); Total Bilirubin 0.5 mg/dL (0.15-1.2); Total Protein 5.3 g/dL (6.6-8.7)
[2021-06-09 05:49] LABS: D Dimer >= 20.00 ug/mIFEU (0-0.59)
--- NOTE | 2021-06-09 08:22 | P.PN_ITS ---
Subjective Subjective: Interval history: Patient was seen and examine this morning, continue to be critically ill, so far he has continued to be on HHFONC 100 % 50 L/MIN, as well as on nonrebreather mask, says he feels fine. Received Lasix 20 mg IV one-time dose overnight, with good urine output. A.m. chest x-ray: Widespread patchy consolidating infiltrates in both lungs, with no significant change from the past. Medications: Reviewed: Yes Vitals/I&O/Wt Last Vital Signs Temp 98.2 F 06/09/21 04:30 Pulse 103 H 06/09/21 07:54 Resp 26 H 06/09/21 07:54 BP 117/82 06/09/21 06:00 Pulse Ox 93 06/09/21 07:54 06/08/21 06/09/21 06/09/21 22:59 06:59 14:59 Intake Total 390 / 800 120 / 920 Output Total 700 / 700 550 / 1250 Balance -310 / 100 -430 / -330 Weight last 48 hrs Weight 95.073 kg Physical Exam Const: COMMON NORMALS: patient oriented x3 HENMT: COMMON NORMALS: normocephalic and atraumatic HEAD & SCALP: normocephalic and atraumatic Resp: EFFORT & INSPECTION: Yes tachypneic and Yes respiratory distress OTHE R: Diminished air entry B/L Cardio: COMMON NORMALS: regular rate, regular rhythm, S1 normal heart sound present, S2 normal heart sound present, No gallops present (Cardio), No murmurs present (Cardio), No rub (Cardio) and Peripheral pulses 2+ throughout RATE: regular rate RHYTHM: regular rhythm HEART SOUNDS: S1 normal heart sound present and S2 normal heart sound present PERIPHERAL PULSES: Peripheral pulses 2+ throughout GI: COMMON NORMALS: Normal to inspection, nondistended, normoactive bowel sounds present, Soft to palpation, non-tender, No hepatosplenomegaly present and no masses AUSCULTATION: Yes normoactive bowel sounds PALPATION: Yes Soft to palpation and Yes No hepatosplenomegaly present RECTAL EXAM: Yes deferred Extremity: COMMON NORMALS: no clubbing, cyanosis or edema and no pedal edema Neuro: COMMON NORMALS: patient oriented x3 Urinary Catheter Management^: Ponce: Cath Placed During This Visit: yes Reason for Continuing Indwelling Catheter: Accurate Measurement of Urinary Output in Critically Ill Patients Urinary Catheter Date of Insertion: 06/07/21 Urinary Catheter Time of Insertion: 10:00 Data : 06/08/21 04:20 06/09/21 04:26 Micro: Microbiology 06/03/21 22:00 Blood Culture - Final Blood NO GROWTH AFTER 5 DAYS 06/03/21 22:15 Blood Culture - Final Blood NO GROWTH AFTER 5 DAYS A&P Assessment and plan (1) COVID-19 determined by clinical diagnostic criteria: Status: Acute (2) Acute respiratory failure: Status: Acute (3) Acute respiratory distress syndrome: Status: Acute (4) Pneumonia due to COVID-19 virus: Status: Acute (5) Pneumomediastinum: Status: Acute (6) Pneumopericardium: Status: Acute (7) Subcutaneous emphysema: Status: Acute Additional A&P Information Admit to ICU in view of acute respiratory failure with quickly increasing 02 requirements Covid PCR positive CTA PE negative for PE Repeat CT chest without contrast: Moderate amount of pneumomediastinum and pneumopericardium has progressed since 06/03/2021. Small amount of subcutaneous emphysema along the inferior RIGHT neck. Progression of bilateral pulmonary opacifications. Progression of dense consolidation and groundglass opacifications. No pneumothorax. 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 trend inflammatory markers including CRP, D dimer Monitor procalcitonin Remdisivir 200mg iv x 1 followed by 100mg iv daily for 5 days dexamethasone 6mg IVP daily for 10 days S/P One dose of Actemra today duoneb q6h, budesonide q12h On broad-spectrum antibiotics cefepime, vancomycin and azithromycin has been discontinued Lovenox 40 mg sc q12 h daily as d-dimer is elevated Flutter valve/spirometer at bedside supplemental 02 to luis carlos 02 sat >92%, BIPAP ventilation Lasix as needed DVT ppx: lovenox 40mg s/c daily Coding Level of Care Code Acute Financial Analysis Consultant for Chg Fwd Exam Detailed Diagnoses COVID-19 determined by clinical diagnostic criteria U07.1 Acute respiratory failure J96.00 Acute respiratory distress syndrome J80 Pneumonia due to COVID-19 virus U07.1; J12.82 Pneumomediastinum J98.2 Pneumopericardium I31.9 Subcutaneous emphysema T79.7XXA
[2021-06-09] MEDS: pantoprazole DR 40 mg Tablet PO (09:00)
[2021-06-09] MEDS: sertraline 100 mg Tablet PO (09:00)
[2021-06-09] MEDS: cefepime 2,000 MG in sodium chloride 0.9% (plus) 50 ML 100 MG IV ×2 (09:00→20:55)
[2021-06-09] MEDS: ALPRAZolam 0.5 mg Tablet PO (09:13)
[2021-06-09] MEDS: fentaNYL 50 mcg/mL INJ 2mL IVP (13:20)
[2021-06-09] MEDS: midazolam 1 mg/mL INJ 2 mL 2 MG IVP (13:20)
[2021-06-09] MEDS: cisatracurium 100 MG in sodium chloride 0.9% 50 ML IV (13:20)
[2021-06-09] MEDS: propofol 1,000 MG/100 ML INJ 11.41 MG IV (13:20)
[2021-06-09] MEDS: rocuronium 10 mg/mL INJ 5mL 100 MG IVP (13:30)
--- NOTE | 2021-06-09 14:04 | XR_ITS ---
WS: [id number] Exam: XR chest 1V portable [id number] Date/Time of Exam: 06/09/2021 2:04 PM Reason For Exam: Line placement Comparison 06/08/2021. Extensive bilateral consolidating patchy infiltrates are noted. Infiltrates on the right have increas ed slightly. Left pulmonary infiltrates are unchanged. Heart size remains normal. An endotracheal tub e is in place ending about 5 cm above the hugh in good position. Right-sided IJ central line extend s into the right atrium. An enteric tube enters the stomach but the tip is not visible. Bony structur es are intact. Additional monitoring leads superimpose the chest. XR/XR chest 1V portable [id number] IMPRESSION: 1. Extensive patchy consolidating infiltrates noted bilaterally. Infiltrates on the right have worsened. 2. ET tube in satisfactory position. 3. Enteric tube noted in the stomach. Central line appears to end in the right atrium.
[2021-06-09] MEDS: succinylcholine 20 mg/mL SDV 10mL 100 MG IVP (14:27)
--- NOTE | 2021-06-09 15:04 | PC.NURSE ---
Intubated at [address] Noyola. See MAR for medications.
[2021-06-09 15:28] LABS: Erythrocyte Sedimentation Rate 2 mm/hr (0-10)
[2021-06-09] MEDS: propofol 1,000 MG/100 ML INJ 34.23 MG IV (15:29)
--- NOTE | 2021-06-09 16:22 | P.PCN_ITS ---
Procedure/Consent Time out: Time Out Performed: Yes Consent: Consent for Procedure: Consent obtained from patient, Consent obtained from other (indicate) (), Risks & Benefits reviewed and Agrees to proceed with procedure Procedure Narrative: Name of the procedure: Endotracheal intubation. Indication: Hypoxic respiratory failure. Medications: Etomidate 30 mg, succinylcholine 150 mg Procedure: The patient was positioned optimally. The patient was oxygenated with 100% oxygen high flow nasal cannula and nonrebreather mask. After appropriate medications were given, the video laryngoscopy blade was intr oduced and advanced till vocal cords were visualized. The glottic area vestibule was deviated to the right. The endotracheal tube was advanced through the vocal cords under direct visualization. There was fogging of the ET tube, positive change in end-tidal CO2 monitor, bilateral chest rise, bilateral positive breath sound. The ET tube was secured at 24 cm at the lips. Complications: There was no immediate complications. Chest x-ray: ET tube in good position. There is no pneumothorax. Acute Procedures Epistaxis Control: Time out performed: Yes
--- NOTE | 2021-06-09 16:39 | PC.NURSE ---
Prone at 1620 for first session.
[2021-06-09] MEDS: famotidine 20 mg/2 mL INJ IVP (16:42)
[2021-06-09 16:52] LABS: ABG PH Result 7.31 (7.35-7.45); Alveolar-Arterial Oxygen Gradi 75.8 mmHg (5-10); Arterial Blood Gas Hematocrit 42.9 % (42-52); Blood Gas Allen Test Pos; Blood Gas Operator Identificat BD; Blood Gas Sample Site Radial, right; Blood Gas Sample Type Arterial; Blood Gas Tidal Volume 0.45; Carboxyhemoglobin 0.6 %THgb (0.4-20.1); HCO3 ABG 31.1 mmol/L (22-26); HGB O2 Sat 78.5 % (95-100); Ionized Calcium Level - ABG 1.2 mmol/L (1.1-1.4); Methemoglobin 0.8 % (0.4-1.5); Oxygen Device VENT; Oxygen Saturation ABG 79.6; PO2 ABG 51.1 mmHg (80.0-100.0); Potassium Level - ABG 3.9 mmol/L (3.5-5.0)
--- NOTE | 2021-06-09 16:52 | PM.ACPR ---
Procedure/Consent Time out: Time Out Performed: Yes Consent: Consent for Procedure: Emergency procedure Procedure Narrative: Name of the Procedure: Right internal Jugular Central venous catheter placement under ultrasound guidance. Indication: Frequent blood work and possible need for vasopressor Anesthesiia: Lidocaine 1%, 5 ml Description of the procedure: The right IJ vein was identified with the Ultrasound from collapsibility and lack of pulsatility. The site was prepared using sterile technique. The skin and subcuteneous tissue was anesthetized using lidocaine. The introducer needle was advanced under US guidance till flash back was noted. Dark, non pulsatile blood noted. Using seldinger technique the CVC was put in.Blood return was noted in all ports. Catheter was secured with suture and covered with transparent dressing. Complications: None X-ray: Central venous catheter is in the junction of the SVC and the right atrium. Acute Procedures Epistaxis Control: Time out performed: Yes
[2021-06-09 16:53] LABS: ABG PCO2 62.2 mmHg (35-45)
--- NOTE | 2021-06-09 16:58 | PM.ACPR ---
Procedure/Consent Time out: Time Out Performed: Yes Consent: Consent for Procedure: Consent obtained from patient (Verbal consent obtained prior to intubation), Consent obtained from other (indicate), Risks & Benefits reviewed and Agrees to proceed with procedure Procedure Narrative: Name of the procedure: Bronchoscopy with inspection of the airway, bronchoalveolar lavage. Indication: Acute hypoxic respiratory failure in the setting of severe COVID-19 requiring intubation. Medication: The patient is on intravenous fentanyl, propofol and Versed drip. Description of the procedure: Consent was obtained for the bronchoscopy procedure prior to intubation from the patient and his . The patient was intubated for acute hypoxic respiratory failure. 1% lidocaine 5 mL was introduced through the ET tube. The bronchoscope was then advanced through the ET tube to the hugh was visualized. In a systematic manner bilateral airways were then examined. The bronchoscope was introduced into the right mainstem bronchus. The right upper lobe, middle lobe and lower lobe bronchi were examined up to the third subsegmental level. The bronchoscope was then introduced into the left mainstem bronchus. The left upper lobe, lingula and lower lobe bronchi were examined up to the third subsegmental level. There was erythema present throughout bilateral airways with areas of telangiectasias. No significant t mucus was noted throughout the airways. There was no endobronchial mass lesion or airway obstruction. A bronchoalveolar lavage was obtained from the medial segment of the right middle lobe. 60 cc of normal saline was instilled 20 mL of cloudy return was obtained. There is no mucous plug present. Specimen was sent for Gram stain and culture, fungal stain and culture. Complications: No immediate complication was noted. Postprocedure chest x-ray showed no pneumothorax. Acute Procedures Epistaxis Control: Time out performed: Yes
--- NOTE | 2021-06-09 17:03 | P.PN_ITS ---
Subjective Subjective: Interval history: The patient was seen and examined. Overnight, he desaturated to low 80s. His flow was increased to 55 L. The patient was saturating in the 80s with 100% oxygen on high flow nasal cannula and nonrebreather on top of it. The patient appears tired and he wanted to get intubated. The patient subsequently underwent intubation and prone positioning. Post prone positioning ABG revealed a PO2 of 51. 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 Abdomen: Soft, distended from obesity, positive bowel sound Musculoskeletal: No obvious joint deformity Skin: No rash Neuro: The patient is sedated Urinary Catheter Management^: Ponce: Cath Placed During This Visit: yes Reason for Continuing Indwelling Catheter: Accurate Measurement of Urinary Output in Critically Ill Patients Urinary Catheter Date of Insertion: 06/07/21 Urinary Catheter Time of Insertion: 10:00 Data : 06/08/21 04:20 06/09/21 04:26 Micro: Microbiology 06/03/21 22:00 Blood Culture - Final Blood NO GROWTH AFTER 5 DAYS 06/03/21 22:15 Blood Culture - Final Blood NO GROWTH AFTER 5 DAYS Attestation for Other Data: I personally reviewed and interpreted the following: Other data: The chest x-ray post intubation revealed worsening right-sided infiltrate. The ET tube is in the right position, central line is well-placed. A&P Assessment and plan (1) Acute respiratory distress syndrome (ARDS) due to severe acute respiratory syndrome coronavirus 2 (SARS-CoV-2): This is a 36-year-old gentleman with ARDS secondary to SARS-CoV-2 pneumonia. The patient had undergone intubation and prone positioning. He is currently paralyzed and sedated. Unfortunately his oxygenation has not improved significantly at least right after the prone positioning. We are going to start calling the ECM[facility] centers for possible transfer. The patient is currently covered with cefepime. He is on dexamethasone and received Tocilizumab. Status: Acute (2) Pneumomediastinum: No evidence of worsened pneumomediastinum or pneumothorax after intubation. Prior to intubation-extensive discussion with the patient and his regarding all possibilities. Status: Acute Attestations Medical Necessity Statement*: Will defer to the primary team Coding Level of Care Code Acute Multicultural Internship for [facility] Fw Diagnoses Acute respiratory distress syndrome (ARDS) due to severe acute respiratory syndrome coronavirus 2 (SARS-CoV-2) U07.1; J80 Pneumomediastinum J98.2 Time Spent (min) 47
--- NOTE | 2021-06-09 18:48 | P.TS_ITS ---
Transfer Summary Providers Date of Admission: 06/04/21 01:41 Date of Discharge: 06/09/21 Attending Provider at Admission: Kat Gonzalez MD Attending Provider at Transfer: Deshaun Sultana MD Primary Care Provider: KIERAN Yang Anticipated Date of Transfer: Anticipated date of transfer: 06/09/21 Receiving Facility & Provider: Receiving Provider: [] Receiving facility: [] Diagnoses at Discharge Discharge Diagnosis (1) Acute respiratory distress syndrome: Status: Acute (2) Acute respiratory failure: Status: Acute (3) Pneumonia due to COVID-19 virus: Status: Acute (4) Pneumomediastinum: Status: Acute (5) Pneumopericardium: Status: Acute (6) Subcutaneous emphysema: Status: Acute Reason for Visit Reason for Visit: Covid Symptoms Hospital Course Hospital Course 36-year-old male with no significant past medical history came in with chief complaint of high fever, chills and diarrhea Started on 06/01, upon arrival in the ER he was worked up for above-mentioned complaint, further work-up revealed Positive Covid PCR, CTA chest per PE protocol showed no pulmonary embolism bilateral extensive Prominent bilateral geographic ground-glass opacities with consolidation in airspace disease consistent with moderate to severe bilateral COVID-19 pneumonia versus, there was also incidental finding of Large 7.5 x 5.4 x 4.6 cm cm left thyroid nodule/mass with deviation of the trachea to the right. He was admitted for the management of Covid pneumonia. Hospital course has been complicated by development of severe ARDS secondary to Covid pneumonia, since the admission the patient was kept on Covid protocol, he completed the course of remdesivir, received 1 dose of Actemra, has been on dexamethasone, Broad-spectrum antibiotic namely cefepime Vanco and azithromycin, duo nebs, Lasix as needed, cultures have been negative so far, patient has received Lasix as needed, most recent CT chest without contrast done on 06/06: Moderate amount of pneumomediastinum and pneumopericardium has progressed since 06/03/2021. Small amount of subcutaneous emphysema along the inferior RIGHT neck. Progression of bilateral pulmonary opacifications. Progression of dense consolidation and groundglass opacifications. No pneumothorax. Chest x-ray done today: Have shown progression bilateral extensive infiltrate, no pneumothorax. Since the patient was not tolerating noninvasive ventilation (BiPAP. HHFONC) and was progressively worsening, in terms of other parameters, it was decided to intubate the patient today Currently he is intubated sedated paralyzed and prone.most recent ABG: pH: 7.31, PCO2 62 PO2 51 FiO2 100%, PF ratio:51. Patient is unvaccinated. Given his age and no underlying comorbid conditions, he will be a suitable candidate for ECMO, attempt to transfer the patient was made, he has been accepted by at [facility]. Patient is being transferred. Pertinent imaging studies: CT angio chest PE protcl :06/03 1. Prominent bilateral geographic ground-glass opacities with consolidation in airspace disease consistent with moderate to severe bilateral COVID-19 pneumonia versus other pneumonia. 2. No pulmonary embolus or aortic dissection. 3. Large 7.5 x 5.4 x 4.6 cm cm left thyroid nodule/mass with deviation of the trachea to the right with recommendation for nonemergent thyroid ultrasound to rule out neoplasm. Repeat CT chest without contrast: 06/06 Moderate amount of pneumomediastinum and pneumopericardium has progressed since 06/03/2021. Small amount of subcutaneous emphysema along the inferior RIGHT neck. Progression of bilateral pulmonary opacifications. Progression of dense consolidation and groundglass opacifications. No pneumothorax. Blood cultures negative so far Physical Exam Const: COMMON NORMALS: patient oriented x3 HENMT: COMMON NORMALS: normocephalic and atraumatic HEAD & SCALP: normocephalic and atraumatic Resp: EFFORT & INSPECTION: Yes tachypneic and Yes respiratory distress OTHER: Diminished air entry B/L Cardio: COMMON NORMALS: regular rate, regular rhythm, S1 normal heart sound present, S2 normal heart sound present, No gallops present (Cardio), No murmurs present (Cardio), No rub (Cardio) and Peripheral pulses 2+ throughout RATE: regular rate RHYTHM: regular rhythm HEART SOUNDS: S1 normal heart sound present and S2 normal heart sound present PERIPHERAL PULSES: Peripheral pulses 2+ throughout GI: COMMON NORMALS: Normal to inspection, nondistended, normoactive bowel sounds present, Soft to palpation, non-tender, No hepatosplenomegaly present and no masses AUSCULTATION: Yes normoactive bowel sounds PALPATION: Yes Soft to palpation and Yes No hepatosplenomegaly present RECTAL EXAM: Yes deferred Extremity: COMMON NORMALS: no clubbing, cyanosis or edema and no pedal edema Neuro: COMMON NORMALS: patient oriented x3 Urinary Catheter Management^: Ponce: Cath Placed During This Visit: yes Reason for Continuing Indwelling Catheter: Accurate Measurement of Urinary Output in Critically Ill Patients Urinary Catheter Date of Insertion: 06/07/21 Urinary Catheter Time of Insertion: 10:00 TS Data Data Completed and Pending: Completed Studies During Hospitalization Category Date Time Status CT angio chest PE protcl [id number] Urge nt Cat Scan 06/03/21 22:[address] chest w con* 7 1260 Routine Cat Scan 06/06/21 08:31 Completed XR chest 1V gallito ble [id number] Routine Exams 06/05/21 07:00 Completed XR chest 1V gallito ble [id number] Routine Exams 06/06/21 07:00 Completed XR chest 1V gallito ble [id number] Routine Exams 06/07/21 05:00 Completed XR chest 1V gallito ble [id number] Routine Exams 06/08/21 10:10 Completed XR chest 1V gallito ble [id number] Stat Exams 06/03/21 22:08 Completed XR chest 1V gallito ble [id number] Stat Exams 06/09/21 14:04 Completed Pending at discharge Category Date Time Status XR chest 1V gallito ble [id number] Routine Exams 06/10/21 06:00 Ordered Arterial Blood Ga s Full AM LABS Lab 06/10/21 04:00 Ordered Arterial Blood Ga s Full AM LABS Lab 06/11/21 04:00 Ordered C Reactive Protei n AM LABS Lab 06/10/21 04:00 Ordered Complete Blood Co unt w/Auto AM LABS Lab 06/10/21 04:00 Ordered Complete Blood Co unt w/Auto AM LABS Lab 06/11/21 04:00 Ordered Complete Blood Co unt w/Auto AM LABS Lab 06/12/21 04:00 Ordered Comprehensive Met abolic Panel AM LA BS Lab 06/10/21 04:00 Ordered Creatine Phosphok inase AM LABS Lab 06/10/21 04:00 Ordered Creatine Phosphok inase AM LABS Lab 06/11/21 04:00 Ordered D Dimer AM LABS Lab 06/10/21 04:00 Ordered Erythrocyte Sedim entation Rate AM L ABS Lab 06/09/21 04:26 Received Erythrocyte Sedim entation Rate AM L ABS Lab 06/10/21 04:00 Ordered Fungal Culture no t HR/SK/BL Stat Lab 06/09/21 14:35 Received Lactate Dehydroge nase AM LABS Lab 06/10/21 04:00 Ordered Sputum Culture an d Gram Stain Stat Lab 06/09/21 14:35 Received Labs from last 24 hours 06/09/21 06/09/21 06/09/21 16:40 04:26 04:26 ESR D-Dimer Specimen Type Arterial Sample Site Radial, right ABG pH 7.31 L ABG pCO2 62.2 H* ABG pO2 51.1 L ABG HCO3 31.1 H ABG O2 Saturation 79.6 ABG Base Excess 3.0 H Alejo Test Pos A-a O2 Gradient 75.8 H Hematocrit 42.9 Hgb O2 Saturation 78.5 L Carboxyhemoglobin 0.6 Methemoglobin 0.8 Total Hemoglobin 14.0 Ionized Calcium 1.2 O2 Delivery Device Vent O2 Liters/Min 100.0 FiO2 100.0 Tidal Volume 0.45 PEEP 12.0 Para Operator ID Bd Sodium 137.0 138 Potassium 3.9 3.6 Chloride 99 Carbon Dioxide 23 Anion Gap 19.6 H BUN 12 Creatinine 0.8 GFR Calculation 108.2 Glucose 102.0 116 H Calculated Osmolal ity 287 Calcium 7.9 L Total Bilirubin 0.5 AST 72 H ALT 126 H Alkaline Phosphata se 79 Lactate Dehydrogen ase 704 H C-Reactive Protein 4.2 Total Protein 5.3 L Albumin 3.2 L Globulin 2.1 06/09/21 06/09/21 06/08/21 04:26 04:26 04:20 ESR Pending 2 D-Dimer >= 20.00 H Specimen Type Sample Site ABG pH ABG pCO2 ABG pO2 ABG HCO3 ABG O2 Saturation ABG Base Excess Alejo Test A-a O2 Gradient Hematocrit Hgb O2 Saturation Carboxyhemoglobin Methemoglobin Total Hemoglobin Ionized Calcium O2 Delivery Device O2 Liters/Min FiO2 Tidal Volume PEEP Para Operator ID Sodium Potassium Chloride Carbon Dioxide Anion Gap BUN Creatinine GFR Calculation Glucose Calculated Osmolal ity Calcium Total Bilirubin AST ALT Alkaline Phosphata se Lactate Dehydrogen ase C-Reactive Protein Total Protein Albumin Globulin Vitals: Last Vital Signs Temp 98.2 F 06/09/21 15:00 Pulse 83 06/09/21 17:30 Resp 20 H 06/09/21 17:30 BP 90/59 06/09/21 17:30 Pulse Ox 84 L 06/09/21 17:30 TS Medications Medications Home Medications fluticasone propionate 50 mcg/actuation nasal spray,suspension 1 spray INTRANASAL Q12H #15.8 ml 08/30/20 [Rx Confirmed 06/04/21] alprazolam 1 mg tablet 1 mg PO DAILY PRN #30 tab 04/18/21 [Rx Confirmed 06/04/21] sertraline 100 mg tablet 100 mg PO DAILY #30 tab 05/06/21 [Rx Confirmed 06/04/21] acetaminophen 325 mg capsule 325 mg PO QID PRN 05/24/21 [History Confirmed 06/04/21] ciprofloxacin 0.3 %-dexamethasone 0.1 % ear drops,suspension 4 drp OTIC (EAR) BID 7 Days #7.5 ml 05/24/21 [Rx Confirmed 06/04/21] fexofenadine 60 mg-pseudoephedrine ER 120 mg tablet,ext.release,12 hr 1 tab PO Q12H PRN 14 Days #30 tab 05/24/21 [Rx Confirmed 06/04/21] prednisone 20 mg tablet 60 mg PO DAILY 9 Days #18 tab 06/01/21 [Rx Confirmed 06/04/21] Active Medications Acetaminophen (Acetaminophen 325 Mg Tablet) 650 mg PO Q6H PRN PRN Reason: Mild/Mod Pain Or Temp >/= 101 Albuterol/Ipratropium (Ipratropium-Albuterol 3 Ml Neb) 3 ml INHALATION Q6H.RESPIRATORY FIOR Last Admin: 06/09/21 15:23 Dose: 3 ml Documented by: Artificial Tears (Artificial Tears Op Oint 3.5 Gm) 1 applic EYE-BOTH PRN PRN PRN Reason: DRY EYE(S) Dexamethasone (Dexamethasone 4 Mg/Ml Inj) 6 mg IVP Q24H FIOR Last Admin: 06/09/21 01:41 Dose: 6 mg Documented by: Enoxaparin Sodium (Enoxaparin 40 Mg/0.4 Ml Syringe) 40 mg SUBCUT Q12H FIOR Last Admin: 06/09/21 15:29 Dose: 40 mg Documented by: Famotidine (Famotidine 20 Mg/2 Ml Inj) 20 mg IVP Q12H IFOR Last Admin: 06/09/21 16:42 Dose: 20 mg Documented by: Cefepime HCl 2,000 mg/ Sodium (Chloride) 50 mls @ 100 mls/hr IV Q12H FIOR; Protocol Last Infusion: 06/09/21 09:32 Dose: Infused Documented by: Propofol (Diprivan) 1,000 mg in 100 mls @ 0 mls/hr IV .Q0M FIOR; Protocol Last Titration: 06/09/21 18:00 Dose: 40 mcg/kg/min, 22.82 mls/hr Documented by: Midazolam HCl 100 mg/ Sodium (Chloride) 100 mls @ 0 mls/hr IV .Q0M FIOR; Protocol Last Titration: 06/09/21 16:59 Dose: 2 mg/hr, 2 mls/hr Documented by: Fentanyl 1,000 mcg/ Sodium (Chloride) 100 mls @ 0 mls/hr IV .Q0M FIOR; Protocol Last Titration: 06/09/21 18:08 Dose: 100 mcg/hr, 10 mls/hr Documented by: Norepinephrine Bitartrate 4 mg (/ Dextrose) 254 mls @ 0 mls/hr IV .Q0M FIOR; Protocol Cisatracurium Besylate 100 mg/ (Sodium Chloride) 100 mls @ 0 mls/hr IV .Q0M FIOR; Protocol Last Titration: 06/09/21 15:44 Dose: 1.5 mcg/kg/min, 8.56 mls/hr Documented by: dexmedeTOMIDine 0.9 % NaCL (Precedex) 400 mcg in 100 mls @ 0 mls/hr IV .Q0M FIOR; Protocol Naloxone HCl (Naloxone 0.4 Mg/Ml Sdv) 0.1 mg IVP Q2M PRN PRN Reason: OPIATERV Ondansetron HCl (Ondansetron 2 Mg/Ml Sdv 2 Ml) 4 mg IVP Q8H PRN PRN Reason: vomiting, or N/V if npo Last Admin: 06/07/21 11:29 Dose: 4 mg Documented by: Sertraline HCl (Sertraline 100 Mg Tablet) 100 mg PO DAILY [facility] Last Admin: 06/09/21 09:00 Dose: 100 mg Documented by: Discharge Plan Discharge Patient Disposition: Home Condition: Stable Prescriptions: Continued sertraline [Zoloft] 100 mg tablet 100 mg PO DAILY Qty: 30 RF: 5 prednisone 20 mg tablet 60 mg PO DAILY 9 Days Qty: 18 RF: 0 acetaminophen [Tylenol] 325 mg capsule 325 mg PO QID PRN (Reason: Pain) RF: 0 fexofenadine-pseudoephedrine [Melanie-D 12 Hour] 60-120 mg tablet extended release 12 hr 1 tab PO Q12H PRN (Reason: sinus symptoms) 14 Days Qty: 30 RF: 0 ciprofloxacin-dexamethasone [Ciprodex] 0.3-0.1 % drops,suspension 4 drp otic (ear) BID 7 Days Qty: 7.5 RF: 0 fluticasone propionate 50 mcg/actuation spray,suspension 1 spray intranasal Q12H Qty: 15.8 RF: 1 alprazolam [Xanax] 1 mg tablet 1 mg PO DAILY PRN (Reason: anxiety) Qty: 30 RF: 0 Patient Instructions: Opioid Safety Transfer Attestations Time Spent in Transfer Care*: greater than 30 min Specific Discharge Activities: Specific discharge activities: educating patient, educating and/or supporting family/caregiver, discussing with pcp/other providers, discussing with correctional casework specialist/social workers/dc planners, documenting/other paperwork and evaluating patient/reviewing data Status at Transfer: Cognitive status at transfer: cognitively intact , Behavioral status at transfer: cooperative , Functional status at transfer: independent ambulation Quality Metrics Clinical Quality Measures: During this hospital stay, did patient experience: None Coding Level of Care Code Acute Extrusion Die Repair Manager for [facility] Fwd Exam Detailed Diagnoses Acute respiratory distress syndrome J80 Acute respiratory failure J96.00 Pneumonia due to COVID-19 virus U07.1; J12.82 Pneumomediastinum J98.2 Pneumopericardium I31.9 Subcutaneous emphysema T79.7XXA
[2021-06-09] MEDS: propofol 1,000 MG/100 ML INJ 22.82 MG IV (20:33)
--- NOTE | 2021-06-09 21:48 | PC.NURSE ---
Transfer Arrangements Patient accepted to [facility] in [place], [place]. , Marcia, notified of acceptance and impending transfer. Flight transport attempted to be arranged with [employer], patient was accepted at first. ZENON Mayer at [facility] was called and gave report on patient with ETA. Flight then denied due to weather conditions. Further arrangements attempted to be made with [facility], [employer], and [facility] crews: all denied due to weather and unavailability respectively. Dr. Sultana notified of lack of transport, order received to not transport patient via ambulance, only air crew. Flight arrangements then made with [employer] and flight accepted by [employer]. Message left with [facility] about new ETA, received by GALLO. , Marcia, contacted again with information regarding transfer and receiving nurse name and unit telephone number.
--- NOTE | 2021-06-09 21:50 | PC.NURSE ---
Supine Patient positioned supine for initial flight acceptance; patient remains supine hereafter due to efforts to secure transport soon.
--- NOTE | 2021-06-09 22:06 | PC.NURSE ---
Flight Cancelled Mel with [facility] called with notification that [employer] who was enroute to miner pick patient for transfer to [facility] aborted the flight due to undesirable weather conditions. [employer] contacted again to approve transfer [place] of base 2.5 hours away; [employer] [facility] denied flight. Dr. Olguin notified of lack of transport, order received to attempt to secure transport in a couple of hours. Message left for , Marcia, on personal phone alerting her of change in plans. Patient remains supine due to efforts for transport.
[2021-06-10] VITALS (23 sets, daily range): BP systolic 69–110; BP diastolic 40–76; PULSE 73–86; RESP 20; TEMP 36.3–37.4; O2SAT 82–93; BMI 36.0
[2021-06-10] MEDS: propofol 1,000 MG/100 ML INJ 31.37 MG IV (01:04)
[2021-06-10] MEDS: dexamethasone 4 mg/mL INJ 6 MG IVP (01:24)
[2021-06-10] MEDS: cisatracurium 100 MG in sodium chloride 0.9% 50 ML 8.56 MG IV (01:40)
--- NOTE | 2021-06-10 01:44 | PC.NURSE ---
This nurse tried [employer], [facility] and [facility] again, all three companies declined flight due to weather
--- NOTE | 2021-06-10 02:36 | PC.NURSE ---
Decline in Health/Prone With no imminent transfer, BIS monitoring initiated to ensure adequate sedation levels for paralytic/proning. Patient's oxygen saturation level 84, all other vitals stable. Patient proned at 0236. Following prone, patient's oxygen saturation level declined and maintained at 82%. HR 70-80, BP MAP >65, RR 20. Dr. Olguin and , Marcia, notified of change in patient status.
[2021-06-10] MEDS: propofol 1,000 MG/100 ML INJ 45.64 MG IV ×2 (03:45→06:00)
--- NOTE | 2021-06-10 03:52 | ECG_ITS ---
[facility] Test Date: 2021-06-10 Pat Name: Cabrera Bower Department: Room: ICU11 Gender: Male Sticker Operator: : 1985 Requested By: Lydia Olguin Order Number: [id number] Zena MD: Tyler Carlisle M.D. Measurements Intervals [place] Rate: 75 P: 47 UT: 174 QRS: 26 QRSD: 91 T: 16 QT: 412 QTc: 461 Interpretive Statements SINUS RHYTHM LOW QRS VOLTAGE IN PRECORDIAL LEADS [QRS DEFLECTION < 1.0 mV IN CHEST LEADS] POSSIBLE RIGHT VENTRICULAR CONDUCTION DELAY [RSR (QR) IN V1/V2] Compared to ECG 06/04/2021 03:59:27 Low QRS voltage now present Electronically Signed On 06-11-2021 7:38:29 MEDICAL TERRITORY MANAGER by Tyler Carlisle M.D. [id number]
[2021-06-10] MEDS: famotidine 20 mg/2 mL INJ IVP (04:01)
[2021-06-10] MEDS: enoxaparin 40 mg/0.4 mL Syringe SUBCUT (04:02)
[2021-06-10 04:51] LABS: ABG PCO2 55.6 mmHg (35-45); ABG PH Result 7.36 (7.35-7.45); Alveolar-Arterial Oxygen Gradi 75.2 mmHg (5-10); Arterial Blood Gas Hematocrit 40.1 % (42-52); Base Excess ABG 4.2 mmol/L (-2.0-2.0); Blood Gas Allen Test Pos; Blood Gas Operator Identificat JB; Blood Gas Sample Site Radial, left; Blood Gas Sample Type Arterial; Blood Gas Tidal Volume 0.45; Carboxyhemoglobin 0.6 %THgb (0.4-20.1); HCO3 ABG 31.1 mmol/L (22-26); HGB O2 Sat 88.7 % (95-100); Ionized Calcium Level - ABG 1.2 mmol/L (1.1-1.4); Methemoglobin 0.3 % (0.4-1.5); Oxygen Device VENT; Oxygen Saturation ABG 89.5; PO2 ABG 61.2 mmHg (80.0-100.0); Potassium Level - ABG 4.5 mmol/L (3.5-5.0); Total Hemoglobin 13.1 g/dL (14-18)
--- NOTE | 2021-06-10 04:59 | PC.NURSE ---
Restraints Restraints off for proning/patient paralyzed.
[2021-06-10 05:21] LABS: Basophils % 0.2 %; Eosinophils # 0.4 10^3/uL (0.0-0.8); Hematocrit 39.7 % (42.0-52.0); Lymphocytes # 0.5 10^3/uL (0.8-4.8); Lymphocytes % 2.8 %; Mean Corpuscular HGB Conc 32.7 g/dL (30.0-36.0); Mean Corpuscular Hemoglobin 29.8 pg (28.0-34.0); Mean Corpuscular Volume 91.1 fl (80-94); Mean Platelet Volume 9.6 fL (7.4-10.4); Monocytes # 0.4 10^3/uL (0.2-0.9); Monocytes % 2.3 %; Neutrophils # 17.38 10^3/uL (1.8-7.7); Neutrophils % 90.8 %; Nucleated Red Blood Cells % 0.1 %; Platelet Count 272 10^3/cmm (130-400); Red Blood Count 4.36 10^6/uL (4.1-5.3); Red Cell Distribution Width 13.1 % (12.1-15.1); White Blood Count 19.1 10^3/uL (4.0-10.0)
[2021-06-10 05:43] LABS: D Dimer 18.96 ug/mIFEU (0-0.59)
[2021-06-10 05:55] LABS: Alanine Aminotransferase 96 U/L (0-41); Albumin Level 3.1 g/dL (3.5-5.2); Alkaline Phosphatase 75 IU/L (40-130); Anion Gap 12.6 (5-19); Aspartate Amino Transferase 44 U/L (0-40); Blood Urea Nitrogen 17 mg/dL (6-20); C Reactive Protein 7.6 mg/L (0.0-4.9); Calcium 8.1 mg/dL (8.5-10.5); Carbon Dioxide 28 mmol/L (22-29); Chloride 98 mmol/L (98-107); Globulin 2.4 g/dL (1.3-4.6); Glomerular Filtration Rate 108.2 mL/min (90-130); Glucose 106 mg/dL (65-115); Osmolality Calculated 280 mOsm/kg (285-295); Potassium 4.6 mmol/L (3.5-5.1); Sodium 134 mmol/L (136-145); Total Bilirubin 0.5 mg/dL (0.15-1.2); Total Protein 5.5 g/dL (6.6-8.7)
[2021-06-10 05:56] LABS: Lactate Dehydrogenase 557 U/L (135-225)
[2021-06-10 06:06] LABS: Creatine Phosphokinase 572 U/L (39-308)
--- NOTE | 2021-06-10 06:27 | PC.NURSE ---
TO4 BIS TIME: 02010/03 57 0400 10/03 44 0600 10/03 40
[2021-06-10] MEDS: dexmedeTOMIDine 0.9 % NaCL 400 MCG/100 ML PREMIX IV (07:24)
--- NOTE | 2021-06-10 07:47 | XR_ITS ---
WS: [id number] Exam: XR chest 1V portable [id number] Date/Time of Exam: 06/10/2021 7:47 AM Reason For Exam: Low O2 Comparison 06/09/2021. Extensive bilateral consolidating infiltrates are noted. No significant change. The lungs remain full y expanded. Heart size is within normal limits. ET tube remains in satisfactory position ending at ab out the level of T3. Right-sided IJ catheter ends in the lower one third of the SVC. An enteric tube enters the stomach but the tip is not visible. Monitoring leads superimpose the chest. Overall, no ch stu since prior study. Unremarkable bony structures. Mediastinal contour is normal. XR/XR chest 1V portable [id number] IMPRESSION: 1. Extensive bilateral pulmonary infiltrates unchanged. 2. ET tube, enteric tube and central line all in satisfactory position.
[2021-06-10] MEDS: propofol 1,000 MG/100 ML INJ 28.52 MG IV ×2 (08:20→08:50)
[2021-06-10 08:32] LABS: ABG PCO2 53.1 mmHg (35-45); ABG PH Result 7.36 (7.35-7.45); Alveolar-Arterial Oxygen Gradi 74.5 mmHg (5-10); Arterial Blood Gas Hematocrit 42.7 % (42-52); Base Excess ABG 3.6 mmol/L (-2.0-2.0); Blood Gas Allen Test Pos; Blood Gas Operator Identificat AMH; Blood Gas Sample Site Radial, left; Blood Gas Sample Type Arterial; Blood Gas Tidal Volume 0.45; Carboxyhemoglobin 0.5 %THgb (0.4-20.1); HCO3 ABG 30.2 mmol/L (22-26); HGB O2 Sat 91.7 % (95-100); Ionized Calcium Level - ABG 1.2 mmol/L (1.1-1.4); Methemoglobin 0.4 % (0.4-1.5); Oxygen Device VENT; Oxygen Saturation ABG 92.5; PO2 ABG 68.6 mmHg (80.0-100.0); Potassium Level - ABG 5.1 mmol/L (3.5-5.0); Total Hemoglobin 13.9 g/dL (14-18)
[2021-06-10] MEDS: cisatracurium 100 MG in sodium chloride 0.9% 50 ML 10.27 MG IV (08:49)
--- NOTE | 2021-06-10 08:51 | PC.NURSE ---
Addendum entered by MARIBETH Kimble RN 06/10/21 08:53: witness sending medication with [facility] ambulance for transfer Original Note: Medications sent with ambulance 1 bag of each: versed, fentanyl, nimbex, and one bottle of propofol.
--- NOTE | 2021-06-10 09:27 | PC.NURSE ---
[facility] Report called to ZENON Ventura at . Patient stable and transfer time.
[2021-06-10 10:30] LABS: Erythrocyte Sedimentation Rate 2 mm/hr (0-10)
[2021-06-14 14:34] LABS: Erythrocyte Sedimentation Rate 2 mm/hr (0-10)
== END 2021-06-10 09:24 | disposition short-term general hospital (02) | DRG 208 ==
LOC: ER 22:37 → ICU 06-04 01:43
PROVIDERS: Family Medicine; Internal Medicine Critical Care Medicine; Admitting Provider Student in an Organized Health Care Education/Training Program; Emergency Provider Emergency Medicine; PCP Nurse Practitioner Family; Visit Provider Internal Medicine
DX: U07.1 COVID-19 (principal); J12.82 Pneumonia due to coronavirus disease 2019; J80 Acute respiratory distress syndrome; I31.9 Disease of pericardium, unspecified; F60.3 Borderline personality disorder; F33.42 Major depressive disorder, recurrent, in full remission; F40.10 Social phobia, unspecified; J98.2 Interstitial emphysema; E04.1 Nontoxic single thyroid nodule
CPT/HCPCS: 36415; 36592; 36600; 51702; 71045; 71260; 71275; 80051; 80053; 80202; 82330; 82550; 82803; 82805; 83605; 83615; 83735; 83880; 84100; 84145; 84443; 84484; 85025; 85378; 85610; 85651; 85730; 86140; 87040; 87070; 87102; 87205; 87206; 87426; 87635; 93005; 94002; 94003; 94640; 94660; 94664; 94799; 96365; 96367; 96372; 96375; 99291; A4570; J0330; J0456; J0692; J0696; J1100; J1170; J1650; J1940; J2060; J2250; J2270; J2405; J2704; J3010; J3262; J3370; J3480; J3490; J7040; J7050; J7626; Q9967

== ENCOUNTER → 2021-07-13 09:20 | Outpatient (BNVA) | payer OTHER, MEDICARE, SELFPAY | PROVIDERS: PCP Nurse Practitioner Family; Visit Provider Family Medicine | DX: U09.9 Post COVID-19 condition, unspecified (principal); E07.9 Disorder of thyroid, unspecified | CPT/HCPCS: 80053; 84443; 85025 ==

== ENCOUNTER 2021-07-26 07:39 | Outpatient (RCR) | payer OTHER, SELFPAY | END 2021-08-01 23:59 | disposition home or self-care (01) | LOC: SPT 07:39 | PROVIDERS: PCP Family Medicine; Referring Provider Family Medicine; Visit Provider Family Medicine | DX: U07.1 COVID-19 (principal) | CPT/HCPCS: 97110; 97161 ==

== ENCOUNTER 2021-08-02 06:00 | Outpatient (RCR) | payer OTHER, SELFPAY | END 2021-08-29 23:59 | disposition home or self-care (01) | LOC: SPT 06:00 | PROVIDERS: PCP Family Medicine; Referring Provider Family Medicine; Visit Provider Family Medicine | DX: U07.1 COVID-19 (principal) | CPT/HCPCS: 97110 ==

== ENCOUNTER 2021-08-30 06:00 | Outpatient (RCR) | payer OTHER, SELFPAY | END 2021-08-30 23:59 | disposition home or self-care (01) | LOC: SPT 06:00 | PROVIDERS: PCP Family Medicine; Referring Provider Family Medicine; Visit Provider Family Medicine | DX: U07.1 COVID-19 (principal); J12.82 Pneumonia due to coronavirus disease 2019 | CPT/HCPCS: 97110 ==

== ENCOUNTER → 2021-08-31 14:23 | Outpatient (BNVA) | payer OTHER, SELFPAY | PROVIDERS: PCP Family Medicine; Visit Provider Internal Medicine Critical Care Medicine | DX: U07.1 COVID-19 (principal); J80 Acute respiratory distress syndrome | CPT/HCPCS: 71046 ==

== ENCOUNTER 2021-10-04 14:35 | Outpatient (CLI) | payer OTHER, SELFPAY ==
--- NOTE | 2021-10-04 15:00 | US_ITS ---
WS: [id number] THYROID ULTRASOUND HISTORY: thyroid mass COMPARISON: None available. Right lobe: 1.3 cm x 1.4 cm x 4.7 cm (w x ap x l). Volume: 4.5 cm3. Normal size gland. Hyperechoic nodule in the mid gland measures 1.1 x 0.9 x 1.3 cm. No increased vasc ularity. No increased central vascularity. No echogenic foci. Left lobe: 6.1 cm x 6.0 cm x 8.2 cm (w x ap x l). Volume: 157.2 cm3. Very enlarged complex cystic and solid LEFT thyroid nodule. There are low-level echoes within the cys tic component which are mobile. The entire nodule measures 6.0 x 6.1 x 8.2 cm. There is a both solid and cystic component. There are additional smaller cystic components. Isthmus: 0.4 cm. US/US thyroid [id number] IMPRESSION: 1. Large mixed complex mass involving the LEFT thyroid. Mass measures 6.0 x 6. 1 x 8.2 cm. Cystic and solid components. May be a hemorrhagic cyst or colloid c yst. 2. Hyperechoic mass in the RIGHT thyroid. These are typically benign.
== END 2021-10-04 14:36 | disposition home or self-care (01) ==
PROVIDERS: PCP Family Medicine; Visit Provider Internal Medicine
DX: E07.9 Disorder of thyroid, unspecified (principal)
CPT/HCPCS: 76536

== ENCOUNTER 2021-10-12 13:14 | Outpatient (CLI) | payer OTHER, SELFPAY | END 2021-10-12 13:15 | disposition home or self-care (01) | LOC: SLEEP 10-13 13:17 | PROVIDERS: PCP Family Medicine; Visit Provider Internal Medicine Critical Care Medicine | DX: G47.10 Hypersomnia, unspecified (principal) | CPT/HCPCS: G0399 ==

== ENCOUNTER 2021-10-18 06:36 | Outpatient (CLI) | payer OTHER, SELFPAY ==
--- NOTE | 2021-10-18 13:29 | PFTS_ITS ---
Date of Study:10/18/21 Date of Dictation: MECHANICS: Forced vital capacity (FVC) is normal. Forced expiratory volume in one second (FEV1) is normal. FEV1/FVC is normal. FLOW VOLUME LOOP: Mild scooping. LUNG VOLUMES: Not measured DIFFUSING CAPACITY FOR CARBON MONOXIDE: Normal. INTERPRETATION: The postbronchodilator spirometry is normal. There is no significant postbronchodilator response. Lung volumes are not measured. Gas exchange (DLCO) is normal. MTDD
== END 2021-10-18 06:37 | disposition home or self-care (01) ==
LOC: RT 06:36
PROVIDERS: PCP Family Medicine; Visit Provider Internal Medicine Critical Care Medicine
DX: U07.1 COVID-19 (principal); J80 Acute respiratory distress syndrome
CPT/HCPCS: 94060; 94726; 94729; J7611

== ENCOUNTER 2021-12-27 10:44 | Observation (INO) | payer OTHER, SELFPAY ==
[2021-12-26 12:42] VITALS: BMI 43.0
[2021-12-27] VITALS (38 sets, daily range): BP systolic 126–152; BP diastolic 66–106; PULSE 60–108; RESP 3–18; TEMP 36.4–37.2; O2SAT 92–99; BMI 42.5
[2021-12-27] MEDS: sodium chloride 0.9% 1,000 ML 30 ML IV (06:25)
--- NOTE | 2021-12-27 06:46 | W.PM.OPSUD ---
Surgery/Procedure H&P Update DATE OF PROCEDURE: December 27, 2021 DATE H&P PERFORMED: 12/05/21 CHANGES TO PREVIOUS DOCUMENTATION: None PRIMARY INDICATION FOR PROCEDURE: Retrosternal goiter, left PLANNED PROCEDURE: Operation Date: 12/27/21 07:00 Proposed Procedures p Hemithyroidectomy 35011,E04.8(Left) - Cristino Morales MD
--- NOTE | 2021-12-27 06:49 | ANES.PREANE2 ---
Pre-Anesthetic Assessment Height/Weight: Height 1.78 m Weight 136.078 kg Temp Pulse Resp BP Pulse Ox 97.5 F L 70 18 126/95 97 12/27/21 06:13 12/27/21 06:13 12/27/21 06:13 12/27/21 06:13 12/27/21 06:13 Preop Diagnosis: thyroid mass Operation Date: 12/27/21 07:00 Proposed Procedures p Hemithyroidectomy 26369,E04.8(Left) - Cristino Morales MD Familial anesthetic complications: none Was Beta Brisa taken within 24 hours: Yes Was Clonidine taken within 24 hours: N/A Last intake: Intake Last Liquid Date 12/26/21 Last Liquid Time 22:00 Last Solid Date 12/26/21 Last Solid Time 20:00 Social No alcohol and No tobacco Exam alert, oriented x 3, clear to auscultation bilaterally and regular rate & rhythm Airway Submandibular: within normal limits Cervical ROM: within normal limits Mallampati: Class I Dentition: chipped (Multiple chipped upper and lower front teeth ) Pulmonary Sleep Apnea Tracheal deviation Post COVID syndrome CV/HEM Arrythmia (WPW) None reported Hepatic None reported GI None reported Musc/skel None reported Neuropsych Anxiety, Cerebrovascular Accident (Right lower extremity numbness lateral and anterior leg persistent, previous RUE weakness resolved. 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 Patient consents to proceed with general anesthesia. Plan GETA, propofol infusion background, adenosine at bedside, cardioversion/defibrillation patches on prior to induction. Risk of > 500 ml blood loss (7ml/kg in children): No Medications/Allergies Home Medications Medication Instructions Recorded Confirmed Last Taken Type fluticasone propionate 50 1 spray INTRANASAL Q12H #15.8 ml 08/30/20 12/27/21 12/26/21 Rx mcg/actuation nasal spray,suspension acetaminophen 325 mg capsule 325 mg PO QID PRN 05/24/21 12/27/2122 History (Tylenol) ascorbate calcium (vitamin C) 500 500 mg PO DAILY 07/21/21 12/27/21 12/26/21 History mg tablet cholecalciferol (vitamin D3) 125 125 mcg PO DAILY 07/21/21 12/27/21 12/26/21 History mcg (5,000 unit) capsule garlic 1,000 mg capsule 1,000 mg PO DAILY 07/21/21 12/27/21 12/26/21 History loratadine 10 mg tablet (Allergy 10 mg PO DAILY 07/21/21 12/27/21 12/26/21 History Relief (loratadine)) zinc acetate 25 mg (zinc) capsule 15 mg PO DAILY cap 07/21/21 12/27/21 12/26/21 History (Galzin) sertraline 100 mg tablet 150 mg PO DAILY #45 tab 08/18/21 12/27/21 12/26/21 Rx alprazolam 1 mg tablet (Xanax) 1 mg PO BID #60 tab 11/14/21 12/27/21 12/26/21 Rx metoprolol tartrate 50 mg tablet 25 mg PO DAILY 12/26/21 12/27/21 12/26/21 History Allergies Allergy/AdvReac Type Severity Reaction Status Date / Time acetazolamide Allergy Unknown unknown Verified 12/27/21 06:05 Current Medications Generic Name Dose Route Start Last Admin Trade Name Freq PRN Reason Stop Dose Admin Sodium Chloride 1,000 mls @ 30 mls/hr 12/27/21 06:00 12/27/21 06:25 Sodium Chloride 0.9% IV 12/28/21 05:59 30 mls/hr .Q24H FIOR Administration PFSH Anesthesia Medical History Borderline personality disorder Chronic knee pain Congenital heart problem Dysthymic disorder Major depressive disorder, recurrent, in full remission Pneumonia due to COVID-19 virus Psychiatric care Social phobia, unspecified Surgical History H/O rhinoplasty Social History Smoking and tobacco status: never smoked Second hand smoke exposure: No Smoking risk assessment/counseling performed?: No Reason smoking risk assessment not done: not indicated Data Anesthesia Cardiac Studies: No Data to Display
[2021-12-27] MEDS: ceFAZolin 3,000 MG in sodium chloride 0.9% (100 ml) 100 ML 200 MG IV ×3 (07:00→22:33)
[2021-12-27] MEDS: EPINEPHrine 1 mg/mL INJ 2 MG XX (08:11)
[2021-12-27] MEDS: ceFAZolin 1,000 mg SDV 1000 MG IRRIGATION (08:12)
[2021-12-27] MEDS: thrombin 5,000 unit SDV 5000 UNIT XX (09:09)
[2021-12-27] MEDS: triamcinolone 40 mg/mL SDV IM (10:01)
--- NOTE | 2021-12-27 10:42 | PM.OP ---
Operative Report Date of procedure: December 27, 2021 Pre-op diagnosis: Preop Diagnosis Left thyroid retrosternal goiter Post-op diagnosis: same Post-op diagnosis: - Left thyroid retrosternal goiter - Left recurrent laryngeal nerve identified and intact/functional - Parathyroid glands X 2 identified and [address] in place Post-op findings: Large, 10cm left retrosternal thyroid lobe Procedure done: Left Hemithyroidectomy/Excision of left retrosternal goiter Implants: None Specimens removed/disposition: Left thyroid lobe Pathology: Left thyroid lobe Surgeon: Cristino Morales [facility] Supervisor: Cathleen Jackson Anesthesia: General Estimated blood loss (mL): 200 IV fluids (mL): 1,400 Urine output (mL): 200 Complications: None Findings: - Large, 10cm left partially retrosternal goiter - Left recurrent larngeal nerve identified and preserved intact - Parathyroid glands X [address] identified [address] preserved in place - O/W normal left tracheoesophageal groove Condition: stable Disposition: ICU Brief History: 36 yo wm with a h/o a symptomatic left retrosternal goiter who desires surgical therapy. Procedure: The patient was identified in the preoperative holding area and was taken to the operating room where he was placed on the operating table in the supine position. Anesthesia was obtained with general endotracheal anesthesia after placing the Nirvana nerve monitoring electrode on the endotracheal tube. With the electrode in the proper position, a horizontal skin incision was drawn out on the patient's anterior neck and the patient was injected with local anesthesia. The patient was then prepped and draped in the usual sterile fashion. The incision was made with a 15 blade down through the skin and was dissected through the subcutaneous fat and platysma muscle using electrocautery. The avascular midline was identified and the strap muscles were dissected free from the left thyroid lobe. The left thyroid mass extended laterally into the left neck-at this point; I elected to dissect the strap muscles off the left thyroid lobe and transect the strap muscle superiorly with the harmonic scalpel thus opening the left tracheoesophageal groove to a wide view. At this point the [place] retractor was placed in the wound and using 5 power loupe magnification the dissection of the left thyroid lobe from the left tracheoesophageal groove began in a circumferential fashion with the nerve monitoring Nirvana hemostat. The superior pole vessels were encountered first and they were individually dissected free from the surrounding tissues and were clipped and controlled at the thyroid capsule. A similar procedure was performed for the inferior pole vessels and the middle thyroid vein. As the dissection proceeded medially, the carotid sheath came into view and the vagus nerve was stimulated to ensure that the nerve monitoring system was intact which it was. The dissection proceeded in a circumferential fashion until the right thyroid mass was rotated medially and the recurrent laryngeal nerve on the left was identified both visually and electrically. At this point with the recurrent laryngeal nerve in view, the dissection proceeded on a wide front while protecting the recurrent laryngeal nerve and parathyroid glands which had been identified as well. The left lobe/mass was then rotated medially and then was excised with a combination of the harmonic scalpel and bipolar cautery. With the left lobe now removed, the left tracheoesophageal groove was evaluated for hemostasis which was achieved with bipolar cautery and clips. At this point with hemostasis having been achieved, the left vagus nerve was stimulated in the left carotid sheath and the left recurrent laryngeal nerve circuit was found to be intact. The left recurrent laryngeal nerve was also easily stimulated while using the Nirvana nerve monitoring system. At this point the wound was irrigated with a copious amount of saline and the left tracheoesophageal groove was filled with Gelfoam soaked in thrombin and Decadron. At this point a drain was placed in the wound and the wound was closed with a combination of interrupted 4-0 Monocryl sutures and 5-0 monocryl in the subcu and a running 5-0 Monocryl subcuticular Monocryl. The skin was then closed with Dermabond and Steri-Strips. At this point the procedure was terminated and control of the patient was returned to anesthesia where he underwent an uneventful reversal of anesthesia and extubation was taken to the recovery room in stable condition. There were no operative or anesthetic complications
[2021-12-27] MEDS: lactated ringers 1,000 ML 125 ML IV ×2 (11:33→19:50)
[2021-12-27] MEDS: famotidine 20 mg/2 mL INJ IVP ×2 (11:34→22:02)
[2021-12-27] MEDS: HYDROcodone-acetaminophen 5-325 mg Tablet 1 TAB PO ×2 (12:10→17:52)
--- NOTE | 2021-12-27 13:46 | ANE.PACU2 ---
Inpatient post-anesthesia follow up: Airway intact: Yes Vital signs: Temperature 98.9 F Pulse Rate 96 Respiratory Rate 15 Blood Pressure 132/91 Pulse Oximetry 94 Oxygen Delivery Me thod [ Nasal Cannula Current Rate & Del shivam] Oxygen Delivery Me thod Nasal Cannula Oxygen Flow Rate [ Current Rate 3.5 & Delivery] Oxygen Flow Rate 3.5 Fraction of Inspir ed Oxygen Hydration adequate: Yes Nausea and vomiting: No Pain level: 1 Mental status: Baseline
--- NOTE | 2021-12-27 17:45 | P.PN_ITS ---
Subjective Subjective: 36 yo wm who is night of surgery s/p left hemithyroidectomy/excision of left retrosternal goiter. The patient reports that he is doing well and has no c/o. He is speaking normally, eating, well, and has [id number] pain. Medications: Reviewed: Yes Vitals/I&O/Wt Last Vital Signs Temp 98.9 F 12/27/21 10:41 Pulse 60 12/27/21 14:00 Resp 15 12/27/21 11:50 BP 132/91 12/27/21 11:50 Pulse Ox 94 12/27/21 11:50 12/27/21 12/27/21 12/27/21 06:59 14:59 22:59 Intake Total 300 / 300 Output Total 200 / 200 500 / 700 Balance 100 / 100 -500 / -400 Weight last 48 hrs Weight 134.263 kg Weight 136.078 kg Physical Exam Const: COMMON NORMALS: no acute distress and patient oriented x3 HENMT: COMMON NORMALS: normocephalic and Normal external nose present HEAD & SCALP: normocephalic NOSE: Normal external nose present Eye: COMMON NORMALS: EOMs intact bilaterally, conjunctivae normal and no scleral icterus CONJUNCTIVA: Yes conjunctivae normal Neck/C-Spine: COMMON NORMALS: no lymphadenopathy and supple GENERAL: Yes trachea midline THYROID: other (Anterior neck incision intact without swelling or redness.) Resp: COMMON NORMALS: normal respiratory effort Neuro: COMMON NORMALS: patient oriented x3 Urinary Catheter Management: Ponce: Cath Placed During This Visit: yes Urinary Catheter Date of Insertion: 12/27/21 Urinary Catheter Time of Insertion: 07:30 A&P Assessment and plan (1) Thyroid mass: Impression: Left mediastinal goiter doing well s/p left hemithyroidectomy/excision of left retrosternal goiter Plan: - Regular diet - ICU observation overnight - Resume preop medications - Anticipate discharge in the morning Status: Acute Attestations Medical Necessity Statement*: The patient requires overnight observation of his airway Coding Level of Care Code Acute Logistics/Shipper for Rustam Hodges Diagnoses Thyroid mass E07.9
[2021-12-27] MEDS: docusate sodium 100 mg Capsule PO (17:52)
[2021-12-28] VITALS (29 sets, daily range): BP systolic 122–145; BP diastolic 69–91; PULSE 47–77; RESP 9–20; TEMP 36.4; O2SAT 88–97; BMI 42.0
[2021-12-28] MEDS: HYDROcodone-acetaminophen 5-325 mg Tablet 1 TAB PO (02:26)
[2021-12-28] MEDS: lactated ringers 1,000 ML 125 ML IV (04:15)
--- NOTE | 2021-12-28 04:47 | PM.PN ---
Subjective Subjective: 36 yo wm who has a h/o left thyroid enlargement/retrosternal goiter who presents for a f/u evaluation. The patient is POD #1 s/p left hemithyroidectomy. Vitals/I&O/Wt Last Vital Signs Temp 97.6 F 12/28/21 04:00 Pulse 52 L 12/28/21 04:15 Resp 16 12/28/21 04:15 BP 122/79 12/28/21 04:15 Pulse Ox 96 12/28/21 04:15 12/27/21 12/27/21 12/28/21 14:59 22:59 06:59 Intake Total 300 / 300 1595.5 / 1895.5 100 / 1995.5 Output Total 200 / 200 1085 / 1285 80 / 1365 Balance 100 / 100 510.5 / 610.5 20 / 630.5 Weight last 48 hrs Weight 134.263 kg Weight 136.078 kg Physical Exam Const: COMMON NORMALS: no acute distress and patient oriented x3 GENERAL APPEARANCE: cooperative HENMT: COMMON NORMALS: normocephalic HEAD & SCALP: normocephalic Neck/C-Spine: COMMON NORMALS: full ROM and no lymphadenopathy GENERAL: Yes trachea midline THYROID: other (The neck incision is intact without swelling. ) Chest: COMMONS NORMALS: normal inspection of the chest Resp: COMMON NORMALS: normal respiratory effort and No retractions Neuro: COMMON NORMALS: patient oriented x3 Urinary Catheter Management: Ponce: Cath Placed During This Visit: yes, but has since been removed by the nurse Reason for Continuing Indwelling Catheter: Not indwelling catheter Urinary Catheter Date of Insertion: 12/27/21 Urinary Catheter Time of Insertion: 07:30 Date Urinary Catheter Removed: 12/27/21 Time Urinary Catheter Discontinued: 14:00 A&P Assessment and plan (1) Thyroid mass: Impression: 36 yo wm who is POD #1 s/p left hemithyroidectomy doing well Plan: - D/C to home - Continue closed suction drainage - [place] () tabsl: take 1-2 tabs po Q5 hours prn pain, #25, NR - F/U in Dr. Morales's office on December, @ 13:00 hours - Notify Dr. Morales for any problems Status: Acute Attestations Medical Necessity Statement*: The patient required overnight observation of his airway Coding Level of Care Code Acute Boarding Machine Operator for Chg Fwd Diagnoses Thyroid mass E07.9
--- NOTE | 2021-12-28 05:00 | PC.NURSE ---
Diet Dr. Morales at bedside for followup on patient. Verbal order received for regular diet starting at breakfast. Discharge discussed; patient verbalized understanding with no further questions.
--- NOTE | 2021-12-28 09:25 | PC.CHAP ---
Pastoral Care Encounter/Spiritual Assessment Type of Contact [] Declined fringe maker visit [] Patient/Family/Request visit [] Outpatient visit [] Follow-up visit [] Physician referral [] Code/Alert [x] Routine visit [] Staff referral [] Actively dying [] Patient sleeping [x] Family support [] [] Out of room [] Palliative care [] [] Receiving care in room [] Pre-surgical visit [] Trauma [] Long length of stay [x] ICU visit [] Other: Relational/Emotional Strength [] Patient feels connected with others/family/visitors/staff [] Distress [] Loneliness/isolation [] Abandonment Spirituality of Patient [] Person of Pascale [] Attends Catholic of their Pascale [] Believes in Prayer [] Reads Bible or Druze materials [] There are Spiritual issues to be addressed Skin Peeling Machine Operator Interventions [x] Prayer [] Active listening [] Non-anxious presence [] Spiritual/emotional support [] Crisis/trauma care [] Spiritual counseling [] Bereavement support [] Provided bereavement packet [] Provided Bible/devotional materials [] Provided toy/stuffed animal, coloring book to patient or family member [] Provided Communion [] Anointing/[place] [] Salvation [x] Completed spiritual assessment [] Other: Impact on Illness or Injury [] Angry [] Fearful [] Anxious [] Often cries [] Exhaustion [] Unable to work [] Unable to attend christianity [] Unable to walk/stand [] Unable to read [] Unable to drive [] Unable to eat/drink [] Unable to sleep [] Unable to be with family [] Patient intubated [] Other: Summary Time spent with patient
== END 2021-12-28 10:24 | disposition home or self-care (01) ==
LOC: ICU 10:46
PROVIDERS: Admitting Provider Specialist; PCP Family Medicine; Visit Provider Specialist
PROC: (CPT 60220; principal; 2021-12-27 07:00)
DX: E04.8 Other specified nontoxic goiter (principal); G47.30 Sleep apnea, unspecified; Z86.16 Personal history of COVID-19; F41.9 Anxiety disorder, unspecified; Z86.73 Personal history of transient ischemic attack (TIA), and cerebral infarction without residual deficits
CPT/HCPCS: 60220; 12345; 51702; 88307; 94664; G0378; J0171; J0330; J0690; J1100; J2370; J2405; J2704; J3010; J3301; J3490; J7030

== ENCOUNTER 2022-01-30 20:00 | Outpatient (CLI) | payer OTHER, MEDICARE, SELFPAY | END 2022-01-30 20:01 | disposition home or self-care (01) | LOC: SLEEP 01-31 08:03 | PROVIDERS: PCP Family Medicine; Visit Provider Internal Medicine Critical Care Medicine | DX: G47.33 Obstructive sleep apnea (adult) (pediatric) (principal) | CPT/HCPCS: 95811 ==

== ENCOUNTER → 2022-07-02 09:47 | Outpatient (BNVA) | payer OTHER, MEDICARE, SELFPAY | PROVIDERS: PCP Family Medicine; Visit Provider Nurse Practitioner Family | DX: R68.89 Other general symptoms and signs (principal); Z20.822 Contact with and (suspected) exposure to COVID-19 | CPT/HCPCS: 87400; 87426 ==

== ENCOUNTER 2023-09-06 02:09 | Emergency (ER) | payer OTHER, SELFPAY ==
[2023-09-06 02:12] VITALS: BP 158/103; PULSE 76; RESP 16; TEMP 36.9; O2SAT 98; BMI 39.4
--- NOTE | 2023-09-06 02:18 | W.ED.MALEGU ---
HPI - Male Genitourinary General: Chief complaint: Urogenital-Male Stated complaint: Lower left abd pain Time Seen by Provider: 09/06/23 02:13 History of Present Illness: Patient presents to the ER with sudden onset left-sided flank pain sharp stabbing in nature that began about 1 hour ago and it radiates to the groin. Patient does not have a history of kidney stones. This is causing him nausea. Patient denies any fever chills cough cold sore throats diarrhea constipation Review of Systems General: Reports: 10 or more systems reviewed and unremarkable except in HPI and below PFSH ED PFSH: Medical History Pneumonia due to COVID-19 virus Psychiatric care Borderline personality disorder Dysthymic disorder Social phobia, unspecified Major depressive disorder, recurrent, in full remission Chronic knee pain Congenital heart problem Surgical History H/O rhinoplasty Social History Smoking and tobacco/nicotine status: never used tobacco/nicotine Second hand smoke exposure: No Alcohol intake: never Substance/Drug Use: never Physical Exam Const: COMMON NORMALS: no acute distress, average body habitus, patient oriented x3, no limitations, healthy appearing, alert and well nourished HENMT: COMMON NORMALS: normocephalic, atraumatic, hearing grossly normal bilaterally, external ears normal, Normal external nose present, moist oral mucous membranes and oropharynx normal HEAD & SCALP: normocephalic and atraumatic NOSE: Normal external nose present EXTERNAL EAR: Yes external ears normal Neck/C-Spine: COMMON NORMALS: no JVD Chest: COMMONS NORMALS: normal inspection of the chest and normal palpation of entire chest wall Resp: COMMON NORMALS: normal respiratory effort, No retractions, No use of accessory muscles and clear to auscultation bilaterally AUSCULTATION: clear to auscultation bilaterally Cardio: COMMON NORMALS: no JVD, regular rate, regular rhythm, S1 normal heart sound present, S2 normal heart sound present, No gallops present (Cardio), No clicks present (Cardio), No murmurs present (Cardio) and No rub (Cardio) RATE: regular rate RHYTHM: regular rhythm HEART SOUNDS: S1 normal heart sound present and S2 normal heart sound present GI: COMMON NORMALS: Normal to inspection, nondistended, normoactive bowel sounds present, Soft to palpation, non-tender, No hepatosplenomegaly present and no masses PALPATION: Yes Soft to palpation and Yes No hepatosplenomegaly present Neuro: COMMON NORMALS: patient oriented x3 SENSORIUM/ORIENTATION: Yes alert Course Vital Signs: Vital signs: Vital Signs Temperature 98.4 F 09/06/23 02:12 Pulse Rate 76 09/06/23 05:25 Respiratory Rate 16 09/06/23 02:12 Blood Pressure 115/81 09/06/23 05:25 Pulse Oximetry 94 09/06/23 05:25 Oxygen Delivery Me thod Room Air 09/06/23 03:08 MDM - Male Medical Decision Making Lab work was obtained as well as urinalysis. Abdominal pelvic CT renal stone protocol showed a 4 x 6 mm stone in the middle third of the left ureter, these results was described to the patient. Patient said he felt much better after the Toradol and Zofran patient be discharged home with prescriptions for both. Differential Diagnosis Unlikely urinary tract infection, priapism, urethritis, epididymitis, genital herpes simplex, prostatitis, acute retention of urine or inguinal hernia Medical Records I reviewed the patient's medical records. Lab Data I reviewed the patient's lab results. 09/06/23 02:17 09/06/23 02:17 Radiology Impressions Abdomen/Pelvis CT 09/06/23 02:29 IMPRESSION: Partially obstructive calcified left ureterolith appreciated within the middle 3rd of the left ureter with further details above. Laboratory Results WBC 11.03 10^3/uL (3.29-11.43) 09/06/23 02:17 RBC 5.58 10^6/uL (3.85-5.65) 09/06/23 02:17 Hgb 16.80 g/dL (11.27-16.99) 09/06/23 02:17 Hct 49.5 % (37-53) 09/06/23 02:17 MCV 88.7 fl (82-101) 09/06/23 02:17 MCH 30.1 pg (27-33) 09/06/23 02:17 MCHC 33.9 g/dL (30-55) 09/06/23 02:17 RDW 12.7 % (12.1-15.1) 09/06/23 02:17 Plt Count 270 10^3/cmm (157-399) 09/06/23 02:17 MPV 10.1 fL (7.4-10.4) 09/06/23 02:17 Neut % (Auto) 59.3 % 09/06/23 02:17 Lymph % (Auto) 33.9 % 09/06/23 02:17 [place] % (Auto) 5.5 % 09/06/23 02:17 Eos % (Auto) 0.5 % 09/06/23 02:17 Baso % (Auto) 0.5 % 09/06/23 02:17 Neut # (Auto) 6.54 10^3/uL (1.8-7.7) 09/06/23 02:17 Lymph # (Auto) 3.7 10^3/uL (0.8-4.8) 09/06/23 02:17 [place] # (Auto) 0.6 10^3/uL (0.2-0.9) 09/06/23 02:17 Eos # (Auto) 0.1 10^3/uL (0.0-0.8) 09/06/23 02:17 Baso # (Auto) 0.1 10^3/uL (0.0-0.1) 09/06/23 02:17 Nucleated RBC % (auto) 0 % 09/06/23 02:17 Nucleated RBCs # 0.0 /100WBC 09/06/23 02:17 Sodium 141 mmol/L (136-145) 09/06/23 02:17 Potassium 3.6 mmol/L (3.5-5.1) 09/06/23 02:17 Chloride 101 mmol/L (98-107) 09/06/23 02:17 Carbon Dioxide 25 mmol/L (22-29) 09/06/23 02:17 Anion Gap 18.6 (5-19) 09/06/23 02:17 BUN 14 mg/dL (6-20) 09/06/23 02:17 Creatinine 1.2 mg/dL (0.7-1.2) 09/06/23 02:17 GFR Calculation 67.1 mL/min (90-130) L 09/06/23 02:17 Glucose 107 mg/dL (65-115) 09/06/23 02:17 Calculated Osmolality 293 mOsm/kg (285-295) 09/06/23 02:17 Calcium 9.2 mg/dL (8.5-10.5) 09/06/23 02:17 Total Bilirubin 0.5 mg/dL (0.15-1.2) 09/06/23 02:17 AST 20 U/L (0-40) 09/06/23 02:17 ALT 19 U/L (0-41) 09/06/23 02:17 Alkaline Phosphatase 74 U/L (40-130) 09/06/23 02:17 Total Protein 7.6 g/dL (6.6-8.7) 09/06/23 02:17 Albumin 4.5 g/dL (3.5-5.2) 09/06/23 02:17 Globulin 3.1 g/dL (1.3-4.6) 09/06/23 02:17 Urine Color Yellow (Yellow) 09/06/23 03:52 Urine Appearance Hazy (CLEAR) A 09/06/23 03:52 Urine pH 6 (5-7) 09/06/23 03:52 Ur Specific [place] 1.015 (1.005-1.030) 09/06/23 03:52 Urine Protein Neg (Negative) 09/06/23 03:52 Urine Glucose (UA) Norm (Normal) 09/06/23 03:52 Urine Ketones 1+ (Negative) H 09/06/23 03:52 Urine Blood 3+ (Negative) H 09/06/23 03:52 Urine Nitrate Negative (Negative) 09/06/23 03:52 Urine Bilirubin Neg (Negative) 09/06/23 03:52 Urine Urobilinogen Neg mg/dL (Negative) 09/06/23 03:52 Ur Leukocyte Esterase Negative (Negative) 09/06/23 03:52 Urine RBC 50-80 /hpf (0-2) H 09/06/23 03:52 Urine WBC None /hpf (0-5) 09/06/23 03:52 Ur Squamous Epith Cells None /hpf (0-5) 09/06/23 03:52 Amorphous Sediment Not Reportable 09/06/23 03:52 Urine Bacteria Trace /hpf (NONE) 09/06/23 03:52 Urine Mucus 2+ /hpf 09/06/23 03:52 All radiology interpretation(s) finalized by discharge Discharge Plan Discharge Patient Disposition: Home Clinical Impression: Calculus of left ureter Condition: Stable Prescriptions: New ondansetron HCl 4 mg tablet 4 mg PO Q8H PRN (Reason: nausea and vomiting) Qty: 14 0RF ketorolac 10 mg tablet 10 mg PO Q8H PRN (Reason: pain) Qty: 14 0RF No Action loratadine [Allergy Relief (loratadine)] 10 mg tablet 10 mg PO DAILY ascorbate calcium (vitamin C) 500 mg tablet 500 mg PO DAILY PRN cholecalciferol (vitamin D3) 125 mcg (5,000 unit) capsule 125 mcg PO DAILY PRN acetaminophen [Tylenol] 325 mg capsule 325 mg PO QID PRN (Reason: Pain) alprazolam [Xanax] 0.25 mg tablet 0.25 mg PO .qhs Qty: 30 5RF alprazolam [Xanax XR] 2 mg tablet extended release 24 hr 2 mg PO QAM Qty: 30 5RF sertraline [Zoloft] 25 mg tablet 25 mg PO DAILY Qty: 30 5RF albuterol sulfate 90 mcg/actuation HFA aerosol inhaler 2 puff inhalation Q6H PRN Rx Instructions: 2 puffs inhaled every 6 hours as needed Magnesium Complex 300 mg magnesium tablet 300 mg PO BEDTIME fluticasone propionate 50 mcg/actuation spray,suspension 1 spray intranasal Q12H Qty: 15.8 1RF Rx Instructions: administer into each nostril Discharge Orders: Discharge ED (Routine); Ordered 09/06/23 Ordered By: Govind Naik Referrals: Andie Balderas MD [Primary Care Provider] - 1 week Patient Instructions: Kidney Stones, How to Strain Your Urine (ED) Activity Restrictions/Additional Instructions: Please take all medicine as prescribed. Nausea medicine and pain medicine was sent to your pharmacy. Please follow-up with your family practice physician within the next 7 days for further evaluation and treatment. Coding Level of Care Code ED Polyethylene Bag Machine Operator for Rustam Hodges
[2023-09-06 02:23] LABS: Basophils # 0.1 10^3/uL (0.0-0.1); Basophils % 0.5 %; Eosinophils # 0.1 10^3/uL (0.0-0.8); Eosinophils % 0.5 %; Hematocrit 49.5 % (37-53); Lymphocytes # 3.7 10^3/uL (0.8-4.8); Lymphocytes % 33.9 %; Mean Corpuscular HGB Conc 33.9 g/dL (30-55); Mean Corpuscular Hemoglobin 30.1 pg (27-33); Mean Corpuscular Volume 88.7 fl (82-101); Mean Platelet Volume 10.1 fL (7.4-10.4); Monocytes # 0.6 10^3/uL (0.2-0.9); Monocytes % 5.5 %; Neutrophils # 6.54 10^3/uL (1.8-7.7); Neutrophils % 59.3 %; Nucleated Red Blood Cells % 0 %; Platelet Count 270 10^3/cmm (157-399); Red Blood Count 5.58 10^6/uL (3.85-5.65); Red Cell Distribution Width 12.7 % (12.1-15.1); White Blood Count 11.03 10^3/uL (3.29-11.43)
[2023-09-06] MEDS: ketorolac 30 mg/mL INJ IVP (02:27)
[2023-09-06] MEDS: ondansetron 2 mg/ML SDV 2 mL 4 MG IVP (02:28)
[2023-09-06] MEDS: sodium chloride 0.9% 1,000 ML 999 ML IV (02:28)
--- NOTE | 2023-09-06 02:29 | CTR_ITS ---
PROCEDURE INFORMATION: Exam: CT Abdomen And Pelvis Without Contrast Exam date and time: 09/06/2023 2:52 AM Age: 38 years old Clinical indication: Abdominal pain; Flank; Left; Additional info: Left flank pain TECHNIQUE: Imaging protocol: Computed tomography of the abdomen and pelvis without contrast. Radiation optimization: All CT scans at this facility use at least one of these dose optimization techniques: automated exposure control; mA and/or kV adjustment per patient size (includes targeted exams where dose is matched to clinical indication); or iterative reconstruction. COMPARISON: CT kidney stone [id number] 11/22/2018 7:12 PM RADIATION DOSE METRICS: Total DLP (mGy-cm): 1189 FINDINGS: Lungs: Bibasilar scarring versus atelectasis. Right lower lobe granuloma. Heart: Base of heart is unremarkable as visualized. Liver: Normal. No mass. Gallbladder and bile ducts: Normal. No calcified stones. No ductal dilation. Pancreas: Normal. No ductal dilation. Spleen: Normal. No splenomegaly. Adrenal glands: Normal. No mass. Kidneys and ureters: Mild left perinephric stranding. Mild dilation of the left renal calices. Mild dilation of the left renal pelvis. Mild proximal left ureterectasis. Within the middler 3rd of the left ureter there is a 6 x 4 mm calcified stone. There is mild surrounding fat stranding of the proximal ureter. There are additional adjacent reactive lymph nodes about the aorta. Stomach and bowel: Unremarkable. No obstruction. No mucosal thickening. Appendix: No evidence of appendicitis. Intraperitoneal space: Unremarkable. No free air. No significant fluid collection. Vasculature: Unremarkable. Lymph nodes: Reactive lymph nodes adjacent to the aorta. Urinary bladder: Unremarkable as visualized. Reproductive: Unremarkable as visualized. Bones/joints: Mild degenerative changes of the visualized osseous structures. Soft tissues: Unremarkable. CT/CT kidney stone [id number] IMPRESSION: Partially obstructive calcified left ureterolith appreciated within the middle 3rd of the left ureter with further details above.
[2023-09-06 02:45] LABS: Alanine Aminotransferase 19 U/L (0-41); Albumin Level 4.5 g/dL (3.5-5.2); Alkaline Phosphatase 74 U/L (40-130); Aspartate Amino Transferase 20 U/L (0-40); Blood Urea Nitrogen 14 mg/dL (6-20); Calcium 9.2 mg/dL (8.5-10.5); Carbon Dioxide 25 mmol/L (22-29); Chloride 101 mmol/L (98-107); Creatinine Clr Calc Pharmacy 108.4435; Globulin 3.1 g/dL (1.3-4.6); Glomerular Filtration Rate 67.1 mL/min (90-130); Glucose 107 mg/dL (65-115); Osmolality Calculated 293 mOsm/kg (285-295); Sodium 141 mmol/L (136-145); Total Bilirubin 0.5 mg/dL (0.15-1.2); Total Protein 7.6 g/dL (6.6-8.7)
[2023-09-06 02:50] LABS: Anion Gap 18.6 (5-19); Potassium 3.6 mmol/L (3.5-5.1)
[2023-09-06 03:08] VITALS: PULSE 68; O2SAT 94
[2023-09-06 04:11] LABS: Add Urine Microscopic? YES; Bilirubin Urine Neg (Negative); Blood Urine 3+ (Negative); Glucose Urine UA Norm (Normal); Ketones Urine 1+ (Negative); Leukocyte Esterase Urine Negative (Negative); Nitrate Urine Negative (Negative); Protein Urine Neg (Negative); Specific Gravity, Urine 1.015 (1.005-1.030); Urine Appearance Hazy (CLEAR); Urine Color Yellow (Yellow); Urobilinogen Urine Neg (Negative); pH Urine 6 (5-7)
[2023-09-06 04:12] LABS: Add Urine Culture? Yes; Bacteria Urine TRACE /hpf; Mucus Urine 2+ /hpf; RBC Urine 50-80 /hpf (0-2)
[2023-09-06 05:25] VITALS: BP 115/81; PULSE 76; O2SAT 94
== END 2023-09-06 05:27 | disposition home or self-care (01) ==
PROVIDERS: Emergency Provider Emergency Medicine; PCP Family Medicine
DX: N20.1 Calculus of ureter (principal)
CPT/HCPCS: 74176; 80053; 81001; 85025; 87086; 96374; 96375; 99285; J1885; J2405; J7030

== ENCOUNTER → 2024-01-01 08:52 | Outpatient (BNVA) | payer OTHER, SELFPAY | PROVIDERS: PCP Family Medicine; Visit Provider Family Medicine | DX: Z13.220 Encounter for screening for lipoid disorders (principal); Z13.6 Encounter for screening for cardiovascular disorders; E89.0 Postprocedural hypothyroidism; I10 Essential (primary) hypertension | CPT/HCPCS: 80053; 80061; 83036; 84439; 84443; 84481 ==

== ENCOUNTER → 2025-05-13 11:14 | Outpatient (BNVA) | payer MEDICARE, OTHER, SELFPAY | PROVIDERS: PCP Family Medicine; Visit Provider Family Medicine | DX: Z13.6 Encounter for screening for cardiovascular disorders (principal); E89.0 Postprocedural hypothyroidism | CPT/HCPCS: 80053; 80061; 84439; 84443; 84480; 85025 ==